=== PATIENT | male | born 1960 | race Caucasian/White ===

== ENCOUNTER 2018-05-31 10:59 | Inpatient (IN) | payer MEDICARE ==
[~2018-05-31] VITALS: Ht 180.3 cm; Wt 94.0 kg
--- NOTE | 2018-05-31 11:31 | RAD ---
Portable chest, 05/31/2018: HISTORY: Chest pain The heart size is normal. The lungs are clear. There is no evidence of pleural fluid. Mild spurring is present in the spine. IMPRESSION: No acute cardiopulmonary abnormality is detected. Electronically signed by: Demarco Corley MD (05/31/2018 11:28 AM) [facility]
--- NOTE | 2018-05-31 11:35 | EKG ---
[facility] [address] [place] [address] Test Date: 2018-05-31 Test Time: 11:06:29 Pat Name: OSCAR DALEY Department: Room: Gender: M Molder Closed Molds: : 1960 Requested By: ARIANNE COSTA Order Number: [id number] Reading MD: Walter Blount MD Measurements Intervals Anderson Rate: 79 P: 62 IL: 170 QRS: 44 QRSD: 94 T: 69 QT: 362 QTc: 416 Interpretive Statements SINUS RHYTHM Electronically Signed On 05-31-2018 12:37:57 CDT by Walter Blount MD
[2018-05-31 11:50] LABS: BASO # 0.1 x10^3/uL (0.0-0.2); BASO % 1 % (0-3); EOS # 0.2 x10^3/uL (0.0-0.7); EOS % 3 % (0-3); HEMATOCRIT 51.4 % (39.0-53.0); HEMOGLOBIN 17.7 g/dL (13.0-17.5); LYMPH % 25 % (24-48); MEAN CORPUSCULAR HEMOGLOBIN 31 pg (25-35); MEAN CORPUSCULAR HGB CONC 34 g/dL (31-37); MEAN CORPUSCULAR VOLUME 90 fL (79-100); MONO # 0.8 x10^3/uL (0.0-1.1); MONO % 10 % (0-9); NEUT # 4.9 x10^3uL (1.8-7.7); NEUT % 62 % (31-73); PLATELET COUNT 187 x10^3/uL (140-400); RED BLOOD COUNT 5.69 x10^6/uL (4.30-5.70); RED CELL DISTRIBUTION WIDTH 12.7 % (11.5-14.5)
[2018-05-31 11:59] LABS: CALCIUM 9.3 mg/dL (8.5-10.1); CREATININE 1.2 mg/dL (0.7-1.3); POTASSIUM 4.4 mmol/L (3.5-5.1)
[2018-05-31 12:02] LABS: PROTHROMBIN TIME PATIENT 11.9 SEC (11.7-14.0)
[2018-05-31 12:09] LABS: D-DIMER 0.52 ug/mlFEU (0.00-0.50)
--- NOTE | 2018-05-31 12:18 | PHYS DOC ---
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 The patient reports she has been having sternal chest pain that radiates across to the right side of his chest as well as the right arm and left arm into the left hand. He has been having symptoms over the last 3 weeks. Symptoms are sometimes worse with exertion and somewhat relieved by rest although he does have symptoms also at rest. He reports the symptoms feel exactly similar to when he previously had been discovered to have significant coronary artery disease in the left anterior descending artery. The patient underwent stent placement as outlined below. The exact dates of the stenting are unknown but the most recent was 2014. There were several stents placed to the LAD over a period of several years. He denies shortness of breath. He has no fever or cough. The patient is new to this area. He has had some problems establishing health insurance and has not been taking his blood pressure medications. He is not followed by cardiology locally. INFORMATION FROM STENT CARD: - Promos PREMIER 2.5 x 16 mm stent to LAD - Promos PREMIER 2.5 x 16 mm stent to MID LAD - Promos PREMIER 2.5 x 24 mm stent to LAD - Promos PREMIER MONORAIL 2.5 x 20 mm stent to ?? DATES PLACED ARE UNCLEAR BUT MOST RECENT WAS 2014. Review of Systems Review of Systems Constitutional: Denies fever HENT: Denies nasal congestion Respiratory: Denies cough or shortness of breath Cardiovascular: No additional information not addressed in HPI GI: Denies abdominal pain : Denies dysuria Musculoskeletal: Denies back pain Integument: Denies rash or skin lesions Neurologic: Denies headache Endocrine: Denies polyuria All other systems were reviewed and found to be within normal limits, except as documented in this note. Allergies Allergies Allergies Coded Allergies Type Severity Reaction Last Updated Verified Penicillins Allergy Unknown hives 05/31/18 Yes Physical Exam Physical Exam Constitutional: Well developed, well nourished, no acute distress HENT: Normocephalic, atraumatic, bilateral external ears normal, oropharynx moist Eyes: PERRLA, EOMI, conjunctiva normal Neck: Normal range of motion, no tenderness Cardiovascular:Heart rate regular rhythm, no murmur Lungs & Thorax: Bilateral breath sounds clear to auscultation Abdomen: Bowel sounds normal, soft, no tenderness Skin: Warm, dry Back: No tenderness Extremities: No tenderness Neurologic: Alert and oriented X 3 Psychologic: Affect normal Current Patient Data Vital Signs Vital Signs Date Time Temp Pulse Resp B/P (MAP) Pulse Ox O2 Delivery O2 Flow Rate FiO2 05/31/18 11:00 98.4 90 16 192/105 (134) 97 Room Air 98.4 Lab Values Laboratory Tests Test 05/31/18 11:45 White Blood Count 8.0 x10^3/uL (4.0-11.0) Red Blood Count 5.69 x10^6/uL (4.30-5.70) Hemoglobin 17.7 g/dL (13.0-17.5) H Hematocrit 51.4 % (39.0-53.0) Mean Corpuscular Volume 90 fL (79-100) Mean Corpuscular Hemoglobin 31 pg (25-35) Mean Corpuscular Hemoglobin Concent 34 g/dL (31-37) Red Cell Distribution Width 12.7 % (11.5-14.5) Platelet Count 187 x10^3/uL (140-400) Neutrophils (%) (Auto) 62 % (31-73) Lymphocytes (%) (Auto) 25 % (24-48) Monocytes (%) (Auto) 10 % (0-9) H Eosinophils (%) (Auto) 3 % (0-3) Basophils (%) (Auto) 1 % (0-3) Neutrophils # (Auto) 4.9 x10^3uL (1.8-7.7) Lymphocytes # (Auto) 2.0 x10^3/uL (1.0-4.8) Monocytes # (Auto) 0.8 x10^3/uL (0.0-1.1) Eosinophils # (Auto) 0.2 x10^3/uL (0.0-0.7) Basophils # (Auto) 0.1 x10^3/uL (0.0-0.2) Prothrombin Time 11.9 SEC (11.7-14.0) Prothrombin Time INR 0.9 (0.8-1.1) D-Dimer (Yen) 0.52 ug/mlFEU (0.00-0.50) H Sodium Level 138 mmol/L (136-145) Potassium Level 4.4 mmol/L (3.5-5.1) Chloride Level 102 mmol/L (98-107) Carbon Dioxide Level 28 mmol/L (21-32) Anion Gap 8 (6-14) Blood Urea Nitrogen 14 mg/dL (8-26) Creatinine 1.2 mg/dL (0.7-1.3) Estimated GFR (Cockcroft-Gault) 62.0 Glucose Level 122 mg/dL (70-99) H Calcium Level 9.3 mg/dL (8.5-10.1) Troponin I Quantitative < 0.017 ng/mL (0.000-0.055) BB-Wqt-G-Type Natriuretic Peptide 132 pg/mL (0-124) H Laboratory Tests 05/31/18 11:45 Laboratory Tests 05/31/18 11:45 EKG EKG No STEMI Interpretation Time: 11:10 Radiology/Procedures Radiology/Procedures CXR: no acute findings Course & Med Decision Making Course & Med Decision Making Pertinent Labs and Imaging studies reviewed. (See chart for details) 12:00: Patient is evaluated in the emergency department for chest pain in the setting of significant history of stenosis to the left anterior descending artery. Symptoms are identical to prior heart related pain according to the patient. His EKG in the emergency Department is nonacute. His troponin is not elevated. Given his risk factors, plan will be to admit the patient and request cardiology evaluation. The patient did take aspirin or to coming to the emergency department. He is not currently having chest pain during the ED course so no additional nitroglycerin or morphine is given. The patient is noted to be hypertensive with systolic blood pressures in the 170s. He normally takes Norvasc 10 mg daily and metoprolol 50 mg extended release daily but he has not been taking these medications. Patient is agreeable to the admission plan of care. Dragon Disclaimer Dragon Disclaimer This electronic medical record was generated, in whole or in part, using a voice recognition dictation system. Departure Departure Referrals: NO PCP (PCP) ARIANNE COSTA DO May 31, 2018 12:18
[2018-05-31] MEDS ORDERED: NITROGLYCERIN SUBLINGUAL 0.4 MG BOTTLE OF 25. SL PRN ×3 (12:30→20:45)
[2018-05-31] MEDS ORDERED: MORPHINE SULFATE 4 MG/ML VIAL. IV PRN (12:30)
[2018-05-31] MEDS ORDERED: ONDANSETRON PF 4 MG/2 ML VIAL. IV PRN (12:30)
[2018-05-31 14:15] VITALS: BP 187/115
--- NOTE | 2018-05-31 14:38 | PDOC2 ---
PIYUSH LINDSEY RIVETER 05/31/18 1438: CARDIAC CONSULT DATE OF CONSULT Date of Consult DATE: 05/31/18 TIME: 14:32 REASON FOR CONSULT Reason for Consult: Chest pain REFERRING PHYSICIAN Referring Physician: Renzo SOURCE Source: Chart review, Patient HISTORY OF PRESENT ILLNESS HISTORY OF PRESENT ILLNESS This is a pleasant 58 yo male admitted for complains of chest pain. Reports that he has been having chest pain in the last 2 weeks mainly sharp in consistency and radiating to both of his arms. Denies any palpitations, nausea , dizziness. Positive for EGAN sometimes attributing it to smoking with at times coughing spells. Denies any leg swelling, PND or orthopnea. No heartburn or frequent indigestion. He has been taking intermittent NTG and took about 3- 4 yesterday and actually helped and today he took 1. Denies any falls or any recent injury but he does explained that he has a bad back which put him in disability. He is significant for CAD with cardiac arrest in 2003 and again [place] in 2014 at [facility] in [place]. He has now moved in [place] with her daughter. He has not seen his behavioral psychologist for a while citing that he could not afford going to the clinic after 2014. To date he takes ASA, flexeril for his back but he does not take any BP meds, or statins. Denies any ibuprofen or aleve. No past hx of arrhythmias or VTE. PAST MEDICAL HISTORY Cardiovascular: CAD, HTN, Hyperlipidemia GI: No pertinent hx Heme/Onc: No pertinent hx Hepatobiliary: No pertinent hx Psych: No pertinent hx Musculoskeletal: low back pain, Osteoarthritis Rheumatologic: No pertinent hx Infectious disease: No pertinent hx ENT: No pertinent hx Renal/: No pertinent hx Endocrine: Diabetes (pre) Dermatology: No pertinent hx PAST SURGICAL HISTORY Past Surgical History: Other (PCI/stent in 2003 and 2014; right middle finger surgery) FAMILY HISTORY Family History: Coronary Artery Disease (mother and father) SOCIAL HISTORY Smoke: <1 pack per day ALCOHOL: none Drugs: Marijuana Lives: with Family ALLERGIES ALLERGIES: Coded Allergies: Penicillins (Verified Allergy, Unknown, hives, 05/31/18) ROS Review of System 14 point ROS evaluated with pertinent positives noted per HPI PHYSICAL EXAM General: Alert, Oriented X3, Cooperative, No acute distress HEENT: Atraumatic, Mucous membr. moist/pink Lungs: Other (faint upper wheeze) Heart: Regular rate (SR), Normal S1, Normal S2, Other (2/6 systolic murmur to LLS border) Abdomen: Soft, No tenderness Extremities: No cyanosis, No edema Skin: No breakdown, No significant lesion Neuro: Normal speech, Sensation intact Psych/Mental Status: Mental status NL, Mood NL MUSCULOSKELETAL: Osteoarthritic changes both hands VITALS VITALS Vital Signs Date Time Temp Pulse Resp B/P (MAP) Pulse Ox O2 Delivery O2 Flow Rate FiO2 05/31/18 12:06 84 16 184/104 (130) 97 Room Air 05/31/18 11:00 98.4 98.4 LABS Lab: Laboratory Tests Test 05/31/18 11:45 White Blood Count 8.0 x10^3/uL (4.0-11.0) Red Blood Count 5.69 x10^6/uL (4.30-5.70) Hemoglobin 17.7 g/dL (13.0-17.5) Hematocrit 51.4 % (39.0-53.0) Mean Corpuscular Volume 90 fL (79-100) Mean Corpuscular Hemoglobin 31 pg (25-35) Mean Corpuscular Hemoglobin Concent 34 g/dL (31-37) Red Cell Distribution Width 12.7 % (11.5-14.5) Platelet Count 187 x10^3/uL (140-400) Neutrophils (%) (Auto) 62 % (31-73) Lymphocytes (%) (Auto) 25 % (24-48) Monocytes (%) (Auto) 10 % (0-9) Eosinophils (%) (Auto) 3 % (0-3) Basophils (%) (Auto) 1 % (0-3) Neutrophils # (Auto) 4.9 x10^3uL (1.8-7.7) Lymphocytes # (Auto) 2.0 x10^3/uL (1.0-4.8) Monocytes # (Auto) 0.8 x10^3/uL (0.0-1.1) Eosinophils # (Auto) 0.2 x10^3/uL (0.0-0.7) Basophils # (Auto) 0.1 x10^3/uL (0.0-0.2) Prothrombin Time 11.9 SEC (11.7-14.0) Prothromb Time International Ratio 0.9 (0.8-1.1) D-Dimer (Yen) 0.52 ug/mlFEU (0.00-0.50) Sodium Level 138 mmol/L (136-145) Potassium Level 4.4 mmol/L (3.5-5.1) Chloride Level 102 mmol/L (98-107) Carbon Dioxide Level 28 mmol/L (21-32) Anion Gap 8 (6-14) Blood Urea Nitrogen 14 mg/dL (8-26) Creatinine 1.2 mg/dL (0.7-1.3) Estimated GFR (Cockcroft-Gault) 62.0 Glucose Level 122 mg/dL (70-99) Calcium Level 9.3 mg/dL (8.5-10.1) Troponin I Quantitative < 0.017 ng/mL (0.000-0.055) QN-Jos-Z-Type Natriuretic Peptide 132 pg/mL (0-124) HEART CATH HEART CATH 2014 INFORMATION FROM STENT CARD: - Promos PREMIER 2.5 x 16 mm stent to LAD - Promos PREMIER 2.5 x 16 mm stent to MID LAD - Promos PREMIER 2.5 x 24 mm stent to LAD - Promos PREMIER 2.5 x 20 mm stent to ?? ASSESSMENT/PLAN ASSESSMENT/PLAN 1. Chest pain: likely induced by uncontrolled HTN, initial trop nml. EKG SR no acute changes. 2. Accelerated HTN: mainly due to noncompliance. 3. HLP 4. Metabolic syndrome 5. Tobaccoism with likely COPD 6. CAD: cardiac arrest in 2003 with stent placement and 2015 stent placement 7. Noncompliance: has not utilized cardiac meds but has been using NTG due to financial constraints. 8. Marijuana use Recommendations 1. Labetolol IV. Start on coreg, lisinopril, statin and ASA 2. Obtain cardiac records. 3. Ischemic workup tomorrow 4. SS referral. Smoking cessation. Discussed compliance. 5. Lipids, TSH, UDS, trend troponin. 6. TTE YASMEEN SHIELDS MD 05/31/186: CARDIAC CONSULT ASSESSMENT/PLAN ASSESSMENT/PLAN Pt. seen and examined. Agree with above [employer] note. I had a long discussion with the patient about aggressive versus conservative mgmt, given his significant cardiac history, stress testing will likely be abnormal. He wishes to pursue conservative measures, which is reasonable given that his enzymes are normal. Supportive care. Plan for MPI in a.m and further eval based on results. PIYUSH LINDSEY APRN May 31, 2018 14:38 YASMEEN SHIELDS MD May 31, 2018 21:36
[2018-05-31] MEDS ORDERED: LABETALOL 20 MG/4 ML DISP.SYRIN. IVP PRN (14:45)
[2018-05-31] MEDS ORDERED: LABETALOL 20 MG/4 ML DISP.SYRIN. IVP ONE (15:15)
[2018-05-31] MEDS: LISINOPRIL 20 MG TABLET PO SCH (15:21)
[2018-05-31] MEDS ORDERED: ASPIRIN ENTERIC COATED 325 MG TABLET.DR. PO ONE (15:30)
[2018-05-31] MEDS ORDERED: FAMOTIDINE 20 MG TABLET. PO ONE (15:30)
[2018-05-31 15:46] LABS: CHOLESTEROL/HDL RATIO 5.8
[2018-05-31] MEDS ORDERED: NITR0.4T22 SL (15:47)
[2018-05-31] MEDS ORDERED: CYCL10TA2 PO (15:47)
[2018-05-31] MEDS ORDERED: ASPI325T8 PO (15:47)
[2018-05-31 15:50] VITALS: BP 157/92
[2018-05-31 17:16] VITALS: BP 149/98
[2018-05-31] MEDS: CARVEDILOL 6.25 MG TABLET. PO SCH (17:38)
[2018-05-31 18:26] LABS: BARBITURATES NEG (NEG); BENZODIAZEPINES NEG (NEG); CANNABINOIDS POS (NEG); COCAINE NEG (NEG); METHADONE NEG (NEG); OPIATES NEG (NEG); PHENCYCLIDINE NEG (NEG)
[2018-05-31 18:27] LABS: AMPHETAMINE/METHAMPHETAMINE NEG (NEG)
[2018-05-31 19:00] VITALS: BP 136/88
--- NOTE | 2018-05-31 20:19 | PDOC1 ---
History and Physical Date of Admission Date of Admission DATE: 05/31/18 TIME: 20:19 Identification/Chief Complaint Chief Complaint cc seen in ER has been having symptoms over the last 3 wee, worse with exertion and somewhat relieved by rest although he does have symptoms also at rest. reports the symptoms feel exactly similar to when he previously had been discovered to have significant coronary artery disease . The patient underwent stent placement as outlined . The exact dates of the stenting are unknown but the most recent was 2014. There were several stents placed to the LAD over a period of several years. 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 Past Surgical History: Other Additional Past Surgical Histo: cardiac stents; r hand Alcohol Use: None Drug Use: Marijuana FAMILY HX CAD Cardiovascular: CAD, HTN, Hyperlipidemia GI: No pertinent hx Heme/Onc: No pertinent hx Hepatobiliary: No pertinent hx Psych: No pertinent hx Musculoskeletal: low back pain, Osteoarthritis Rheumatologic: No pertinent hx Infectious disease: No pertinent hx ENT: No pertinent hx Renal/: No pertinent hx Endocrine: Diabetes (pre) Dermatology: No pertinent hx Past Surgical History Past Surgical History: Other (PCI/stent in 2003 and 2014; right middle finger surgery) Family History Family History: Coronary Artery Disease (mother and father) Family History: Grandparents Social History Smoke: <1 pack per day ALCOHOL: none Drugs: Marijuana Current Problem List Problem List Problems Medical Problems: (1) Chest pain Status: Acute (2) Coronary artery disease Status: Acute Current Medications Current Medications Current Medications Ondansetron HCl (Zofran) 4 mg PRN Q8HRS PRN IV NAUSEA/VOMITING; Start 05/31/18 at 12:30; Stop 06/01/18 at 12:29 Morphine Sulfate (Morphine Sulfate) 4 mg PRN Q2HR PRN IV PAIN; Start 05/31/18 at 12:30; Stop 06/01/18 at 12:29 Nitroglycerin (Nitrostat) 0.4 mg PRN Q5MIN PRN SL CHEST PAIN; Start 05/31/18 at 12:30; Stop 06/01/18 at 12:29 Aspirin (Ecotrin) 325 mg 1X ONCE PO Last administered on 05/31/18at 15:20; Start 05/31/18 at 15:30; Stop 05/31/18 at 15:31; Status DC Aspirin (Ecotrin) 81 mg DAILYWBKFT PO ; Start 06/01/18 at 08:00 Famotidine (Pepcid) 20 mg 1X ONCE PO Last administered on 05/31/18at 15:20; Start 05/31/18 at 15:30; Stop 05/31/18 at 15:31; Status DC Famotidine (Pepcid) 20 mg QHS PO Last administered on 05/31/18at 20:11; Start 05/31/18 at 21:00 Labetalol HCl (Normodyne Iv Push) 20 mg PRN Q2HR PRN IVP HYPERTENSION, SEE COMMENTS; Start 05/31/18 at 14:45 Labetalol HCl (Normodyne Iv Push) 20 mg 1X ONCE IVP Last administered on at 15:24; Start 05/31/18 at 15:15; Stop 05/31/18 at 15:16; Status DC Lisinopril (Prinivil) 20 mg DAILY PO Last administered on 05/31/18at 15:21; Start 05/31/18 at 15:30 Carvedilol (Coreg) 6.25 mg BIDWMEALS PO Last administered on 05/31/18at 17:38; Start 05/31/18 at 17:00 Atorvastatin Calcium (Lipitor) 20 mg QHS PO ; Start 05/31/18 at 21:00; Stop at 21:00; Status DC Atorvastatin Calcium (Lipitor) 40 mg QHS PO Last administered on 05/31/18at 20:10 ; Start 05/31/18 at 21:00 Active Scripts Active Reported Aspirin 325 Mg Tablet 1 Tab PO DAILY Cyclobenzaprine Hcl 10 Mg Tablet 1 Tab PO TID PRN NITROGLYCERIN SubLingual (Nitroglycerin) 0.4 Mg Tab.subl 0.4 Mg SL PRN Q5MIN PRN Allergies Allergies: Coded Allergies: Penicillins (Verified Allergy, Unknown, hives, 05/31/18) ROS Review of System Review of Systems Review of Systems Constitutional: Denies fever HENT: Denies nasal congestion Respiratory: Denies cough or shortness of breath Cardiovascular: No additional information not addressed in HPI GI: Denies abdominal pain : Denies dysuria Musculoskeletal: Denies back pain Integument: Denies rash or skin lesions Neurologic: Denies headache Endocrine: Denies polyuria 14 PT systems were reviewed and found to be within normal limits, except as documented . PSYCHOLOGICAL ROS: No: Anxiety, Behavioral Disorder, Concentration difficultie , Decreased libido, Depression, Disorientation, Hallucinations, Hostility, Irritablity, Memory difficulties, Mood Swings, Obsessive thoughts, Physical abuse, Sexual abuse, Sleep disturbances, Suicidal ideation, Other Cardiovascular: yes Chest Pain Musculoskeletal: No Gait Disturbance, No Joint Pain, No Joint Stiffness, No Joint Swelling, No Muscle Pain, No Muscular Weakness, No Pain In:, No Swelling In:, No Other Neurological: No Behavorial Changes, No Bowel/Bladder ControlChng, No Confusion , No Dizziness, No Gait Disturbance, No Headaches, No Impaired Coord/balance, No Memory Loss, No Numbness/Tingling, No Seizures, No Speech Problems, No Tremors, No Visual Changes, No Weakness, No Other Physical Exam Physical Exam Physical Exam Physical Exam Constitutional: Well developed, well nourished, MILD acute distress HENT: Normocephalic, atraumatic, bilateral external ears normal, oropharynx moist Eyes: PERRLA, EOMI, conjunctiva normal Neck: Normal range of motion, no tenderness Cardiovascular:Heart rate regular rhythm, no murmur Lungs & Thorax: Bilateral breath sounds clear to auscultation Abdomen: Bowel sounds normal, soft, no tenderness Skin: Warm, dry Back: No tenderness Extremities: No tenderness Neurologic: Alert and oriented X 3 Psychologic: Affect normal General: Alert, Oriented X3, Cooperative, mild distress HEENT: Atraumatic, PERRLA Lungs: Normal air movement Heart: S1S2, no gallops Cardiovascular: S1 Rectal Exam: not examined PELVIC: Examination not indicated Extremities: No cyanosis Skin: No rashes Neuro: Normal speech, Cranial nerves 3-12 NL Psych/Mental Status: Mental status NL, Mood NL Vitals Vitals Vital Signs Date Time Temp Pulse Resp B/P (MAP) Pulse Ox O2 Delivery O2 Flow Rate FiO2 05/31/18 17:38 69 149/98 05/31/18 14:15 97.9 20 99 97.9 05/31/18 14:15 Room Air Labs Labs Laboratory Tests Test 05/31/18 11:45 05/31/18 15:17 05/31/18 17:35 05/31/18 18:30 White Blood Count 8.0 x10^3/uL (4.0-11.0) Red Blood Count 5.69 x10^6/uL (4.30-5.70) Hemoglobin 17.7 g/dL (13.0-17.5) Hematocrit 51.4 % (39.0-53.0) Mean Corpuscular Volume 90 fL (79-100) Mean Corpuscular Hemoglobin 31 pg (25-35) Mean Corpuscular Hemoglobin Concent 34 g/dL (31-37) Red Cell Distribution Width 12.7 % (11.5-14.5) Platelet Count 187 x10^3/uL (140-400) Neutrophils (%) (Auto) 62 % (31-73) Lymphocytes (%) (Auto) 25 % (24-48) Monocytes (%) (Auto) 10 % (0-9) Eosinophils (%) (Auto) 3 % (0-3) Basophils (%) (Auto) 1 % (0-3) Neutrophils # (Auto) 4.9 x10^3uL (1.8-7.7) Lymphocytes # (Auto) 2.0 x10^3/uL (1.0-4.8) Monocytes # (Auto) 0.8 x10^3/uL (0.0-1.1) Eosinophils # (Auto) 0.2 x10^3/uL (0.0-0.7) Basophils # (Auto) 0.1 x10^3/uL (0.0-0.2) Prothrombin Time 11.9 SEC (11.7-14.0) Prothromb Time International Ratio 0.9 (0.8-1.1) D-Dimer (Yen) 0.52 ug/mlFEU (0.00-0.50) Sodium Level 138 mmol/L (136-145) Potassium Level 4.4 mmol/L (3.5-5.1) Chloride Level 102 mmol/L (98-107) Carbon Dioxide Level 28 mmol/L (21-32) Anion Gap 8 (6-14) Blood Urea Nitrogen 14 mg/dL (8-26) Creatinine 1.2 mg/dL (0.7-1.3) Estimated GFR (Cockcroft-Gault) 62.0 Glucose Level 122 mg/dL (70-99) Calcium Level 9.3 mg/dL (8.5-10.1) Troponin I Quantitative < 0.017 ng/mL (0.000-0.055) < 0.017 ng/mL (0.000-0.055) < 0.017 ng/mL (0.000-0.055) RO-Pzb-H-Type Natriuretic Peptide 132 pg/mL (0-124) Triglycerides Level 165 mg/dL (0-150) Cholesterol Level 213 mg/dL (0-200) LDL Cholesterol, Calculated 143 mg/dL (0-100) VLDL Cholesterol, Calculated 33 mg/dL (0-40) Non-HDL Cholesterol Calculated 176 mg/dL (0-129) HDL Cholesterol 37 mg/dL (40-60) Cholesterol/HDL Ratio 5.8 Thyroid Stimulating Hormone (TSH) 2.670 uIU/mL (0.358-3.74) Urine Opiates Screen Neg (NEG) Urine Methadone Screen Neg (NEG) Urine Barbiturates Neg (NEG) Urine Phencyclidine Screen Neg (NEG) Urine Amphetamine/Methamphetamine Neg (NEG) Urine Benzodiazepines Screen Neg (NEG) Urine Cocaine Screen Neg (NEG) Urine Cannabinoids Screen Pos (NEG) Urine Ethyl Alcohol Neg (NEG) Laboratory Tests Test 05/31/18 11:45 05/31/18 15:17 05/31/18 17:35 05/31/18 18:30 White Blood Count 8.0 x10^3/uL (4.0-11.0) Red Blood Count 5.69 x10^6/uL (4.30-5.70) Hemoglobin 17.7 g/dL (13.0-17.5) Hematocrit 51.4 % (39.0-53.0) Mean Corpuscular Volume 90 fL (79-100) Mean Corpuscular Hemoglobin 31 pg (25-35) Mean Corpuscular Hemoglobin Concent 34 g/dL (31-37) Red Cell Distribution Width 12.7 % (11.5-14.5) Platelet Count 187 x10^3/uL (140-400) Neutrophils (%) (Auto) 62 % (31-73) Lymphocytes (%) (Auto) 25 % (24-48) Monocytes (%) (Auto) 10 % (0-9) Eosinophils (%) (Auto) 3 % (0-3) Basophils (%) (Auto) 1 % (0-3) Neutrophils # (Auto) 4.9 x10^3uL (1.8-7.7) Lymphocytes # (Auto) 2.0 x10^3/uL (1.0-4.8) Monocytes # (Auto) 0.8 x10^3/uL (0.0-1.1) Eosinophils # (Auto) 0.2 x10^3/uL (0.0-0.7) Basophils # (Auto) 0.1 x10^3/uL (0.0-0.2) Prothrombin Time 11.9 SEC (11.7-14.0) Prothromb Time International Ratio 0.9 (0.8-1.1) D-Dimer (Yen) 0.52 ug/mlFEU (0.00-0.50) Sodium Level 138 mmol/L (136-145) Potassium Level 4.4 mmol/L (3.5-5.1) Chloride Level 102 mmol/L (98-107) Carbon Dioxide Level 28 mmol/L (21-32) Anion Gap 8 (6-14) Blood Urea Nitrogen 14 mg/dL (8-26) Creatinine 1.2 mg/dL (0.7-1.3) Estimated GFR (Cockcroft-Gault) 62.0 Glucose Level 122 mg/dL (70-99) Calcium Level 9.3 mg/dL (8.5-10.1) Troponin I Quantitative < 0.017 ng/mL (0.000-0.055) < 0.017 ng/mL (0.000-0.055) < 0.017 ng/mL (0.000-0.055) PZ-Poy-W-Type Natriuretic Peptide 132 pg/mL (0-124) Triglycerides Level 165 mg/dL (0-150) Cholesterol Level 213 mg/dL (0-200) LDL Cholesterol, Calculated 143 mg/dL (0-100) VLDL Cholesterol, Calculated 33 mg/dL (0-40) Non-HDL Cholesterol Calculated 176 mg/dL (0-129) HDL Cholesterol 37 mg/dL (40-60) Cholesterol/HDL Ratio 5.8 Thyroid Stimulating Hormone (TSH) 2.670 uIU/mL (0.358-3.74) Urine Opiates Screen Neg (NEG) Urine Methadone Screen Neg (NEG) Urine Barbiturates Neg (NEG) Urine Phencyclidine Screen Neg (NEG) Urine Amphetamine/Methamphetamine Neg (NEG) Urine Benzodiazepines Screen Neg (NEG) Urine Cocaine Screen Neg (NEG) Urine Cannabinoids Screen Pos (NEG) Urine Ethyl Alcohol Neg (NEG) VTE Prophylaxis Ordered VTE Prophylaxis Devices: Yes VTE Pharmacological Prophylaxi: Yes Assessment/Plan Assessment/Plan IMPRESSION 1. Unstable angina 2. continued tobacco abuse 3. THC abuse 4. CAD 5. hypertensive urgency Labetolol IV. in er 1. coreg, lisinopril, statin and ASA 2. Obtain records. 3. mpi 4. SS referral. Smoking cessation education provided 5. Lipids, TSH, UDS, troponin series. 6. echo 7. sq lovenox dvt prophylaxis 8. gi prophylaxis LILIANE LARSON MD May 31, 2018 20:19
[2018-05-31] MEDS ORDERED: CYCLOBENZAPRINE 10 MG TABLET. PO PRN (20:45)
[2018-05-31] MEDS ORDERED: ENOXAPARIN 40 MG/0.4 ML SYRINGE. SQ SCH (21:00)
[2018-05-31] MEDS ORDERED: FAMOTIDINE 20 MG TABLET. PO SCH (21:00)
[2018-05-31] MEDS ORDERED: ATORVASTATIN CALCIUM 40 MG TABLET. PO SCH (21:00)
[2018-05-31] MEDS ORDERED: ATORVASTATIN CALCIUM 20 MG TABLET PO SCH (21:00)
[2018-05-31 23:00] VITALS: BP 136/88
[2018-06-01 03:00] VITALS: BP 123/73
[2018-06-01 07:00] VITALS: BP 121/80
[2018-06-01] MEDS: CARVEDILOL 6.25 MG TABLET. PO SCH ×2 (08:00→17:20)
[2018-06-01] MEDS ORDERED: ASPIRIN ENTERIC COATED 81 MG TABLET.DR. PO SCH (08:00)
[2018-06-01 08:43] LABS: BASO # 0.1 x10^3/uL (0.0-0.2); BASO % 1 % (0-3); EOS # 0.3 x10^3/uL (0.0-0.7); EOS % 4 % (0-3); HEMOGLOBIN 16.8 g/dL (13.0-17.5); LYMPH # 1.9 x10^3/uL (1.0-4.8); LYMPH % 24 % (24-48); MEAN CORPUSCULAR HEMOGLOBIN 32 pg (25-35); MEAN CORPUSCULAR HGB CONC 35 g/dL (31-37); MEAN CORPUSCULAR VOLUME 90 fL (79-100); MONO # 0.7 x10^3/uL (0.0-1.1); MONO % 9 % (0-9); NEUT # 4.7 x10^3uL (1.8-7.7); NEUT % 61 % (31-73); PLATELET COUNT 172 x10^3/uL (140-400); RED BLOOD COUNT 5.32 x10^6/uL (4.30-5.70); RED CELL DISTRIBUTION WIDTH 12.8 % (11.5-14.5); WHITE BLOOD COUNT 7.7 x10^3/uL (4.0-11.0)
[2018-06-01] MEDS ORDERED: ASPIRIN 325 MG TABLET PO SCH (09:00)
[2018-06-01] MEDS: LISINOPRIL 20 MG TABLET PO SCH (09:00)
[2018-06-01 09:02] LABS: CALCIUM 8.7 mg/dL (8.5-10.1); CREATININE 1.2 mg/dL (0.7-1.3); POTASSIUM 4.3 mmol/L (3.5-5.1)
[2018-06-01] MEDS ORDERED: REGADENOSON 0.4 MG/5 ML DISP.SYRIN. IV ONE (09:30)
[2018-06-01 12:16] VITALS: BP 120/93
--- NOTE | 2018-06-01 12:53 | PDOC ---
PROGRESS NOTES Chief Complaint Chief Complaint Chest pain, 2/2 HTN urgency vs unstable angina HTN urgency HLP Metabolic syndrome Tobaccoism with likely COPD h/o CAD: cardiac arrest in 2003 with stent placement and 2015 stent placement Noncompliance: has not utilized cardiac meds but has been using NTG due to financial constraints. Marijuana use plan: fu with card, on asa, lipitor, coreg , lisinopril MPI today sw for no insurance nitro prn echo pending dvt ppx History of Present Illness History of Present Illness ROS: no fever, chills, sob or chest pain no chest pain for now Vitals Vitals Vital Signs Date Time Temp Pulse Resp B/P (MAP) Pulse Ox O2 Delivery O2 Flow Rate FiO2 06/01/18 12:16 120/93 (102) 06/01/18 08:00 Room Air 06/01/18 07:00 97.7 70 20 96 97.7 Physical Exam General: Alert, Oriented X3, Cooperative, mild distress Heart: Regular rate (SR), Normal S1, Normal S2, Other (2/6 systolic murmur to LLS border) Lungs: Clear Abdomen: Normal bowel sounds, Soft, No tenderness Extremities: No cyanosis Skin: No rashes Labs LABS Laboratory Tests Test 05/31/18 15:17 05/31/18 17:35 05/31/18 18:30 06/01/18 08:25 Troponin I Quantitative < 0.017 ng/mL (0.000-0.055) < 0.017 ng/mL (0.000-0.055) Urine Opiates Screen Neg (NEG) Urine Methadone Screen Neg (NEG) Urine Barbiturates Neg (NEG) Urine Phencyclidine Screen Neg (NEG) Urine Amphetamine/Methamphetamine Neg (NEG) Urine Benzodiazepines Screen Neg (NEG) Urine Cocaine Screen Neg (NEG) Urine Cannabinoids Screen Pos (NEG) Urine Ethyl Alcohol Neg (NEG) White Blood Count 7.7 x10^3/uL (4.0-11.0) Red Blood Count 5.32 x10^6/uL (4.30-5.70) Hemoglobin 16.8 g/dL (13.0-17.5) Hematocrit 48.0 % (39.0-53.0) Mean Corpuscular Volume 90 fL (79-100) Mean Corpuscular Hemoglobin 32 pg (25-35) Mean Corpuscular Hemoglobin Concent 35 g/dL (31-37) Red Cell Distribution Width 12.8 % (11.5-14.5) Platelet Count 172 x10^3/uL (140-400) Neutrophils (%) (Auto) 61 % (31-73) Lymphocytes (%) (Auto) 24 % (24-48) Monocytes (%) (Auto) 9 % (0-9) Eosinophils (%) (Auto) 4 % (0-3) Basophils (%) (Auto) 1 % (0-3) Neutrophils # (Auto) 4.7 x10^3uL (1.8-7.7) Lymphocytes # (Auto) 1.9 x10^3/uL (1.0-4.8) Monocytes # (Auto) 0.7 x10^3/uL (0.0-1.1) Eosinophils # (Auto) 0.3 x10^3/uL (0.0-0.7) Basophils # (Auto) 0.1 x10^3/uL (0.0-0.2) Sodium Level 136 mmol/L (136-145) Potassium Level 4.3 mmol/L (3.5-5.1) Chloride Level 104 mmol/L (98-107) Carbon Dioxide Level 26 mmol/L (21-32) Anion Gap 6 (6-14) Blood Urea Nitrogen 15 mg/dL (8-26) Creatinine 1.2 mg/dL (0.7-1.3) Estimated GFR (Cockcroft-Gault) 62.0 Glucose Level 116 mg/dL (70-99) Calcium Level 8.7 mg/dL (8.5-10.1) Assessment and Plan Assessmemt and Plan Problems Medical Problems: (1) Chest pain Status: Acute (2) Coronary artery disease Status: Acute Comment Review of Relevant I have reviewed the following items isaac (where applicable) has been applied. Labs Laboratory Tests Test 05/31/18 11:45 05/31/18 15:17 05/31/18 17:35 05/31/18 18:30 White Blood Count 8.0 x10^3/uL (4.0-11.0) Red Blood Count 5.69 x10^6/uL (4.30-5.70) Hemoglobin 17.7 g/dL (13.0-17.5) Hematocrit 51.4 % (39.0-53.0) Mean Corpuscular Volume 90 fL (79-100) Mean Corpuscular Hemoglobin 31 pg (25-35) Mean Corpuscular Hemoglobin Concent 34 g/dL (31-37) Red Cell Distribution Width 12.7 % (11.5-14.5) Platelet Count 187 x10^3/uL (140-400) Neutrophils (%) (Auto) 62 % (31-73) Lymphocytes (%) (Auto) 25 % (24-48) Monocytes (%) (Auto) 10 % (0-9) Eosinophils (%) (Auto) 3 % (0-3) Basophils (%) (Auto) 1 % (0-3) Neutrophils # (Auto) 4.9 x10^3uL (1.8-7.7) Lymphocytes # (Auto) 2.0 x10^3/uL (1.0-4.8) Monocytes # (Auto) 0.8 x10^3/uL (0.0-1.1) Eosinophils # (Auto) 0.2 x10^3/uL (0.0-0.7) Basophils # (Auto) 0.1 x10^3/uL (0.0-0.2) Prothrombin Time 11.9 SEC (11.7-14.0) Prothromb Time International Ratio 0.9 (0.8-1.1) D-Dimer (Yen) 0.52 ug/mlFEU (0.00-0.50) Sodium Level 138 mmol/L (136-145) Potassium Level 4.4 mmol/L (3.5-5.1) Chloride Level 102 mmol/L (98-107) Carbon Dioxide Level 28 mmol/L (21-32) Anion Gap 8 (6-14) Blood Urea Nitrogen 14 mg/dL (8-26) Creatinine 1.2 mg/dL (0.7-1.3) Estimated GFR (Cockcroft-Gault) 62.0 Glucose Level 122 mg/dL (70-99) Calcium Level 9.3 mg/dL (8.5-10.1) Troponin I Quantitative < 0.017 ng/mL (0.000-0.055) < 0.017 ng/mL (0.000-0.055) < 0.017 ng/mL (0.000-0.055) RM-Kbl-I-Type Natriuretic Peptide 132 pg/mL (0-124) Triglycerides Level 165 mg/dL (0-150) Cholesterol Level 213 mg/dL (0-200) LDL Cholesterol, Calculated 143 mg/dL (0-100) VLDL Cholesterol, Calculated 33 mg/dL (0-40) Non-HDL Cholesterol Calculated 176 mg/dL (0-129) HDL Cholesterol 37 mg/dL (40-60) Cholesterol/HDL Ratio 5.8 Thyroid Stimulating Hormone (TSH) 2.670 uIU/mL (0.358-3.74) Urine Opiates Screen Neg (NEG) Urine Methadone Screen Neg (NEG) Urine Barbiturates Neg (NEG) Urine Phencyclidine Screen Neg (NEG) Urine Amphetamine/Methamphetamine Neg (NEG) Urine Benzodiazepines Screen Neg (NEG) Urine Cocaine Screen Neg (NEG) Urine Cannabinoids Screen Pos (NEG) Urine Ethyl Alcohol Neg (NEG) Test 06/01/18 08:25 White Blood Count 7.7 x10^3/uL (4.0-11.0) Red Blood Count 5.32 x10^6/uL (4.30-5.70) Hemoglobin 16.8 g/dL (13.0-17.5) Hematocrit 48.0 % (39.0-53.0) Mean Corpuscular Volume 90 fL (79-100) Mean Corpuscular Hemoglobin 32 pg (25-35) Mean Corpuscular Hemoglobin Concent 35 g/dL (31-37) Red Cell Distribution Width 12.8 % (11.5-14.5) Platelet Count 172 x10^3/uL (140-400) Neutrophils (%) (Auto) 61 % (31-73) Lymphocytes (%) (Auto) 24 % (24-48) Monocytes (%) (Auto) 9 % (0-9) Eosinophils (%) (Auto) 4 % (0-3) Basophils (%) (Auto) 1 % (0-3) Neutrophils # (Auto) 4.7 x10^3uL (1.8-7.7) Lymphocytes # (Auto) 1.9 x10^3/uL (1.0-4.8) Monocytes # (Auto) 0.7 x10^3/uL (0.0-1.1) Eosinophils # (Auto) 0.3 x10^3/uL (0.0-0.7) Basophils # (Auto) 0.1 x10^3/uL (0.0-0.2) Sodium Level 136 mmol/L (136-145) Potassium Level 4.3 mmol/L (3.5-5.1) Chloride Level 104 mmol/L (98-107) Carbon Dioxide Level 26 mmol/L (21-32) Anion Gap 6 (6-14) Blood Urea Nitrogen 15 mg/dL (8-26) Creatinine 1.2 mg/dL (0.7-1.3) Estimated GFR (Cockcroft-Gault) 62.0 Glucose Level 116 mg/dL (70-99) Calcium Level 8.7 mg/dL (8.5-10.1) Laboratory Tests Test 05/31/18 15:17 05/31/18 17:35 05/31/18 18:30 06/01/18 08:25 Troponin I Quantitative < 0.017 ng/mL (0.000-0.055) < 0.017 ng/mL (0.000-0.055) Urine Opiates Screen Neg (NEG) Urine Methadone Screen Neg (NEG) Urine Barbiturates Neg (NEG) Urine Phencyclidine Screen Neg (NEG) Urine Amphetamine/Methamphetamine Neg (NEG) Urine Benzodiazepines Screen Neg (NEG) Urine Cocaine Screen Neg (NEG) Urine Cannabinoids Screen Pos (NEG) Urine Ethyl Alcohol Neg (NEG) White Blood Count 7.7 x10^3/uL (4.0-11.0) Red Blood Count 5.32 x10^6/uL (4.30-5.70) Hemoglobin 16.8 g/dL (13.0-17.5) Hematocrit 48.0 % (39.0-53.0) Mean Corpuscular Volume 90 fL (79-100) Mean Corpuscular Hemoglobin 32 pg (25-35) Mean Corpuscular Hemoglobin Concent 35 g/dL (31-37) Red Cell Distribution Width 12.8 % (11.5-14.5) Platelet Count 172 x10^3/uL (140-400) Neutrophils (%) (Auto) 61 % (31-73) Lymphocytes (%) (Auto) 24 % (24-48) Monocytes (%) (Auto) 9 % (0-9) Eosinophils (%) (Auto) 4 % (0-3) Basophils (%) (Auto) 1 % (0-3) Neutrophils # (Auto) 4.7 x10^3uL (1.8-7.7) Lymphocytes # (Auto) 1.9 x10^3/uL (1.0-4.8) Monocytes # (Auto) 0.7 x10^3/uL (0.0-1.1) Eosinophils # (Auto) 0.3 x10^3/uL (0.0-0.7) Basophils # (Auto) 0.1 x10^3/uL (0.0-0.2) Sodium Level 136 mmol/L (136-145) Potassium Level 4.3 mmol/L (3.5-5.1) Chloride Level 104 mmol/L (98-107) Carbon Dioxide Level 26 mmol/L (21-32) Anion Gap 6 (6-14) Blood Urea Nitrogen 15 mg/dL (8-26) Creatinine 1.2 mg/dL (0.7-1.3) Estimated GFR (Cockcroft-Gault) 62.0 Glucose Level 116 mg/dL (70-99) Calcium Level 8.7 mg/dL (8.5-10.1) Medications Current Medications Ondansetron HCl (Zofran) 4 mg PRN Q8HRS PRN IV NAUSEA/VOMITING; Start 05/31/18 at 12:30; Stop 06/01/18 at 12:29; Status DC Morphine Sulfate (Morphine Sulfate) 4 mg PRN Q2HR PRN IV PAIN; Start 05/31/18 at 12:30; Stop 06/01/18 at 12:29; Status DC Nitroglycerin (Nitrostat) 0.4 mg PRN Q5MIN PRN SL CHEST PAIN; Start 05/31/18 at 12:30; Stop 05/31/18 at 20:42; Status DC Aspirin (Ecotrin) 325 mg 1X ONCE PO Last administered on 05/31/18at 15:20; Start 05/31/18 at 15:30; Stop 05/31/18 at 15:31; Status DC Aspirin (Ecotrin) 81 mg DAILYWBKFT PO ; Start 06/01/18 at 08:00 Famotidine (Pepcid) 20 mg 1X ONCE PO Last administered on 05/31/18at 15:20; Start 05/31/18 at 15:30; Stop 05/31/18 at 15:31; Status DC Famotidine (Pepcid) 20 mg QHS PO Last administered on 05/31/18at 20:11; Start 05/31/18 at 21:00 Labetalol HCl (Normodyne Iv Push) 20 mg PRN Q2HR PRN IVP HYPERTENSION, SEE COMMENTS; Start 05/31/18 at 14:45 Labetalol HCl (Normodyne Iv Push) 20 mg 1X ONCE IVP Last administered on at 15:24; Start 05/31/18 at 15:15; Stop 05/31/18 at 15:16; Status DC Lisinopril (Prinivil) 20 mg DAILY PO Last administered on 05/31/18at 15:21; Start 05/31/18 at 15:30 Carvedilol (Coreg) 6.25 mg BIDWMEALS PO Last administered on 05/31/18at 17:38; Start 05/31/18 at 17:00 Atorvastatin Calcium (Lipitor) 20 mg QHS PO ; Start 05/31/18 at 21:00; Stop at 21:00; Status DC Atorvastatin Calcium (Lipitor) 40 mg QHS PO Last administered on 05/31/18at 20:10 ; Start 05/31/18 at 21:00 Aspirin (Baltazar Aspirin) 325 mg DAILY PO ; Start 06/01/18 at 09:00; Status UNV Cyclobenzaprine HCl (Flexeril) 10 mg TID PRN PO MUSCLE SPASMS; Start 05/31/18 at 20:45 Nitroglycerin (Nitrostat) 0.4 mg PRN Q5MIN PRN SL CHEST PAIN; Start 05/31/18 at 20:45; Status UNV Enoxaparin Sodium (Lovenox 40mg Syringe) 40 mg Q24H SQ Last administered on 05/31at 23:55; Start 05/31/18 at 21:00 Nitroglycerin (Nitrostat) 0.4 mg PRN Q5MIN PRN SL CHEST PAIN; Start 05/31/18 at 20:45 Regadenoson (Lexiscan) 0.4 mg 1X ONCE IV Last administered on 06/01/18at 10:38; Start 06/01/18 at 09:30; Stop 06/01/18 at 09:31; Status DC Active Scripts Active Reported Aspirin 325 Mg Tablet 1 Tab PO DAILY Cyclobenzaprine Hcl 10 Mg Tablet 1 Tab PO TID PRN NITROGLYCERIN SubLingual (Nitroglycerin) 0.4 Mg Tab.subl 0.4 Mg SL PRN Q5MIN PRN Vitals/I & O Vital Sign - Last 24 Hours 05/31/18 05/31/18 05/31/18 05/31/18 14:15 14:15 15:21 15:24 Temp 97.9 97.9 Pulse 87 81 81 Resp 20 B/P (MAP) 187/115 (139) 157/92 157/92 Pulse Ox 99 O2 Delivery Room Air 05/31/18 05/31/18 05/31/18 05/31/18 15:50 17:16 17:38 19:00 Temp 98.3 98.3 Pulse 80 69 69 78 Resp 15 B/P (MAP) 157/92 (113) 149/98 (115) 149/98 136/88 (104) Pulse Ox 98 O2 Delivery Room Air 05/31/18 05/31/18 06/01/18 06/01/18 20:00 23:00 03:00 07:00 Temp 98.2 98.3 97.7 98.2 98.3 97.7 Pulse 78 66 70 Resp 15 16 20 B/P (MAP) 136/88 (104) 123/73 (90) 121/80 (94) Pulse Ox 98 97 96 O2 Delivery Room Air Room Air Room Air Room Air 06/01/18 06/01/18 08:00 12:16 B/P (MAP) 120/93 (102) O2 Delivery Room Air Intake and Output 05/31/18 05/31/18 06/01/18 15:00 23:00 07:00 Intake Total 1040 ml Output Total 750 ml 0 ml Balance 290 ml 0 ml SACHIN AVILA MD Jun 01, 2018 12:53
[2018-06-01] MEDS ORDERED: ONDANSETRON PF 4 MG/2 ML VIAL. IV PRN (13:00)
[2018-06-01] MEDS ORDERED: DOCUSATE SODIUM 100 MG CAPSULE. PO PRN (13:00)
[2018-06-01] MEDS ORDERED: ACETAMINOPHEN 325 MG TABLET. PO PRN (13:00)
[2018-06-01] MEDS ORDERED: traMADol 50 MG TABLET PO PRN (13:00)
[2018-06-01] MEDS ORDERED: MORPHINE SULFATE 2 MG/ML VIAL. IV PRN (13:00)
--- NOTE | 2018-06-01 13:12 | CARD ---
MR#: [id number] Date of Study: 06/01/2018 Ordering Physician: PIYUSH LINDSEY, Referring Physician: LILIANE LARSON Tech: Kim Norman LAKEISHA APPROVED REPORT EXAM: Two-dimensional and M-mode echocardiogram with Doppler and color Doppler. Other Information Quality : Good INDICATION Hypertension/HCVD Chest Pain 2D DIMENSIONS Left Atrium(2D)2.9 (1.6-4.0cm)IVSd1.2 (0.7-1.1cm) Aortic Root(2D)3.3 (2.0-3.7cm)LVDd5.0 (3.9-5.9cm) LVOT Diameter2.5 (1.8-2.4cm)PWd1.2 (0.7-1.1cm) LVDs2.8 (2.5-4.0cm)FS (%) 27.0 % SV87.9 mlLVEF(%)55.0 (>50%) Aortic Valve AoV Peak Emanuel.117.5cm/sAoV VTI19.5cm AO Peak GR.5.5mmHgLVOT Peak Emanuel.91.7cm/s AO Mean GR.3mmHgAVA (VMAX)3.97cm2 RADHIKA (VTI)4.70cm2 Mitral Valve MV E Cmqgknzv20.2cm/sMV DECEL [id number] MV A Jnvftvdo51.7cm/sE/A Ratio0.7 Pulmonary Vein S1 Fepjlcjo29.0cm/sD2 Gsiwpyys46.3cm/s LEFT VENTRICLE The left ventricle is normal size. There is mild concentric left ventricular hypertrophy. The left ve ntricular systolic function is normal and the ejection fraction is within normal range. The Ejection Fraction is 55%. There is normal LV segmental wall motion. Transmitral Doppler flow pattern is Grade I-abnormal relaxation pattern. RIGHT VENTRICLE The right ventricle is normal size. The right ventricular systolic function is normal. ATRIA The left atrium size is normal. The right atrium size is normal. The interatrial septum is intact wit h no evidence for an atrial septal defect or patent foramen ovale as noted on 2-D or Doppler imaging. AORTIC VALVE The aortic valve is calcified but opens well. Doppler and Color Flow revealed no significant aortic r egurgitation. There is no significant aortic valvular stenosis. MITRAL VALVE The mitral valve is calcified but opens well. There is no evidence of mitral valve prolapse. There is no mitral valve stenosis. Doppler and Color Flow revealed no mitral valve regurgitation noted. TRICUSPID VALVE The tricuspid valve is normal in structure and function. Doppler and Color Flow revealed no tricuspid valve regurgitation noted. There is no tricuspid valve stenosis. PULMONIC VALVE The pulmonic valve is not well visualized. Doppler and Color Flow revealed trace pulmonic valvular re gurgitation. There is no pulmonic valvular stenosis. GREAT VESSELS The aortic root is normal in size. The ascending aorta is not well seen. The IVC is normal in size an d collapses >50% with inspiration. PERICARDIAL EFFUSION There is no evidence of significant pericardial effusion. Critical Notification Critical Value: No <Conclusion> The left ventricular systolic function is normal and the ejection fraction is within normal range. Th e Ejection Fraction is 55%. There is normal LV segmental wall motion. Signed by : Walter Blount, Electronically Approved : 06/01/2018 13:12:02
--- NOTE | 2018-06-01 14:41 | RAD ---
MR#: [id number] Date of Study: 06/01/2018 Ordering Physician: PIYUSH LINDSEY, Referring Physician: STEPHY TERESA Tech: Damon Dejesus NMTCB, ARRT (Makayla) (N) APPROVED REPORT Test Type: Pharmacological Stress Nurse/Tech: Jacqueline BLACKWELL Test Indications: CP, CAD Cardiac History: CAD, [place]=PTCA in 2015, HTN, Smoker Medications: See EMR Medical History: See EMR Resting ECG: SR w/ PVCs Resting Heart Rate: 74 bpm Resting Blood Pressure: 119/68mmHg Pretest Chest Pain: No chest pain Nurse/Tech Notes Heart tones regular, Lung sounds clear and diminished in the bases. Consent: The procedure was explained to the patient in lay terms. Informed consent was witnessed. Juanjose eout was entered into [employer]. History and Stress Test performed by HAMIDA Sun, GEOVANNY (R) (N) Pharm. Details Pharmacologic stress testing was performed using 0.4mg per 5ml of regadenoson given intravenously ove r 7-10 seconds. Stress Symptoms Pt c/o chest pressure in center of chest with no radiation at 4/10; 1 min into recovery. Chest press ure relieved 4 min into recovery. POST EXERCISE Reason for Termination: Infusion complete Max HR: 124 bpm Max Blood Pressure: 153/97mmHg Chest Pain: Yes. Chest pressure, see above. Arrhythmia: Yes. few PVCs ST Change: No. INTERPRETATION Stress EKG Conclusion: Baseline EKG showed sinus rhythm. No ischemic changes at peak stress. No arr hythmias. Imaging Protocol IMAGE PROTOCOL: Rest Tc-99m/stress Tc-99m 1 day Rest: Stress: Viability: Radiopharm.Tc99m TrjwplizzKg88b Sestamibi Ddyk83cLx 33mCi Duration 15min. 12min. Img Date 06/01/2018 06/01/2018 Inj-Img Brfg98ywz. 60min. Rest Admin Site:IV - Left AntecubitalAdministrator:HAMIDA Sun ARRT (R)(N) Stress Admin Site: IV - Left AntecubitalAdministrator: Norma Burr, STEPHYTCB, ARRT (R)(N) STRESS DATA End Diast. Vol.156.0mlLVEDV index BSA73.0ml End Syst. Vol.97.0mlLVESV index BSA45.0ml Myocardial Rowu841.0gEject. Xoewsnmp13.0% Stress Scores Regional WT3.00Summed WT29.00 Regional WM2.00Summed WM24.00 LV Perfusion Scintigraphic images showed moderate sized mixed perfusion defect involving the distal inferior wall and the entire apical wall consistent with small infarct and small to moderate amount of ischemia. Wall Motion Mild global left ventricle systolic dysfunction and moderate anteroapical wall hypokinesis with eject ion fraction calculated at 38%. LV Perf. Quant 17 Seg. SSS16.00 17 Seg. SRS13.00 17 Seg. SDS5.00 Stress Defect Extent (% LAD)50.00Rest Defect Extent (% LAD)27.50Rev. Defect Extent (% LAD)41.30 Stress Defect Extent (% LCX) 0.00Rest Defect Extent (% LCX)10.00Rev. Defect Extent (% LCX)0.00 Stress Defect Extent (% RCA)45.60Rest Defect Extent (% RCA)47.80Rev. Defect Extent (% RCA)18.90 Stress Defect Extent (% EDER)38.90Rest Defect Extent (% EDER)31.70Rev. Defect Extent (% EDER)23.50 Conclusion 1. Regadenoson cardioisotope stress test showed mixed perfusion defect involving the distal inferior wall and the entire apical wall consistent with small infarct and small to moderate amount of ischemi a. 2. Mild global left ventricle systolic dysfunction and moderate anteroapical wall hypokinesis with ej ection fraction calculated at 38%. 3. Intermediate risk for cardiac events. Signed by : Chito Gonzalez, Electronically Approved : 06/01/2018 14:40:39
[2018-06-01 15:00] VITALS: BP 116/68
--- NOTE | 2018-06-01 15:51 | PDOC ---
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 MACHINE 06/01/18 1550: CARDIO Progress Notes Date and Time Date of Service 06/01/2018 Time of Evaluation 1533 Subjective Subjective: Other (chest pain with elevated BP during MPI; resolved with treatment of BP) Vitals Vitals Vital Signs Date Time Temp Pulse Resp B/P (MAP) Pulse Ox O2 Delivery O2 Flow Rate FiO2 06/01/18 12:16 120/93 (102) 06/01/18 08:00 Room Air 06/01/18 07:00 97.7 70 20 96 97.7 Weight Weight [ ] Input and Output Intake and Output Intake and Output 06/01/18 07:00 Intake Total 1040 ml Output Total 750 ml Balance 290 ml Intake Oral 1040 ml Output Urine Total 750 ml # Voids 2 Laboratory Labs Laboratory Tests Test 05/31/18 17:35 05/31/18 18:30 06/01/18 08:25 Urine Opiates Screen Neg (NEG) Urine Methadone Screen Neg (NEG) Urine Barbiturates Neg (NEG) Urine Phencyclidine Screen Neg (NEG) Urine Amphetamine/Methamphetamine Neg (NEG) Urine Benzodiazepines Screen Neg (NEG) Urine Cocaine Screen Neg (NEG) Urine Cannabinoids Screen Pos (NEG) Urine Ethyl Alcohol Neg (NEG) Troponin I Quantitative < 0.017 ng/mL (0.000-0.055) White Blood Count 7.7 x10^3/uL (4.0-11.0) Red Blood Count 5.32 x10^6/uL (4.30-5.70) Hemoglobin 16.8 g/dL (13.0-17.5) Hematocrit 48.0 % (39.0-53.0) Mean Corpuscular Volume 90 fL (79-100) Mean Corpuscular Hemoglobin 32 pg (25-35) Mean Corpuscular Hemoglobin Concent 35 g/dL (31-37) Red Cell Distribution Width 12.8 % (11.5-14.5) Platelet Count 172 x10^3/uL (140-400) Neutrophils (%) (Auto) 61 % (31-73) Lymphocytes (%) (Auto) 24 % (24-48) Monocytes (%) (Auto) 9 % (0-9) Eosinophils (%) (Auto) 4 % (0-3) Basophils (%) (Auto) 1 % (0-3) Neutrophils # (Auto) 4.7 x10^3uL (1.8-7.7) Lymphocytes # (Auto) 1.9 x10^3/uL (1.0-4.8) Monocytes # (Auto) 0.7 x10^3/uL (0.0-1.1) Eosinophils # (Auto) 0.3 x10^3/uL (0.0-0.7) Basophils # (Auto) 0.1 x10^3/uL (0.0-0.2) Sodium Level 136 mmol/L (136-145) Potassium Level 4.3 mmol/L (3.5-5.1) Chloride Level 104 mmol/L (98-107) Carbon Dioxide Level 26 mmol/L (21-32) Anion Gap 6 (6-14) Blood Urea Nitrogen 15 mg/dL (8-26) Creatinine 1.2 mg/dL (0.7-1.3) Estimated GFR (Cockcroft-Gault) 62.0 Glucose Level 116 mg/dL (70-99) Calcium Level 8.7 mg/dL (8.5-10.1) Physical Exam HEENT: Neck Supple W Full Motion Chest: Symmetric LUNGS: Clear to Auscultation Heart: S1S2, no gallops Abdomen: Soft N/T Extremities: No Edema Neurology: alert, oriented Assessment Assessment 1. 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 Accelerated HTN --likely due to non-adherence with medications --controlled with oral meds 3. mixed hyperlipidemia --increase statin dose to maximal 8. substance abuse --tobacco & THC YASMEEN SHIELDS MD 06/01/18 8844: CARDIO Progress Notes Plan Plan Pt. seen and examined. Agree with above FLIGHT TEST SUPERVISOR note. Would proceed with cath but patient wants to think about it. Understands risks/ benefits of waiting. Supportive care. Continue medical therapy with statin, asa, bp meds. MARCE FELIX APRN Jun 01, 2018 15:50 YASMEEN SHIELDS MD Jun 01, 2018 17:41
[2018-06-01 17:20] VITALS: BP 116/68
[2018-06-01] MEDS ORDERED: ATORVASTATIN CALCIUM 40 MG TABLET. PO SCH (21:00)
--- NOTE | 2018-06-02 09:39 | PDOC3 ---
Discharge Summary [facility] Date of Admission: May 31, 2018 Discharge Date: Jun 02, 2018 Admitting Diagnosis Chest pain, 2/2 HTN urgency vs unstable angina HTN urgency HLP Metabolic syndrome Tobaccoism with likely COPD h/o CAD: cardiac arrest in 2003 with stent placement and 2014 stent placement Noncompliance: has not utilized cardiac meds but has been using NTG due to financial constraints. Marijuana use Final Diagnosis CONSULTS card Brief Hospital Course Mr. Willoughby is a 58 old M, /h/o CAD with stents, smoker, non compliant with meds 2/2 insurance issues, came for chest pain. MPI intermediate risk, card plan to do cath, however, pt seemed not willing to yesterday, and dced by colleague later afternoon. i talked to card today. dc time 35min. General: Alert, Oriented X3, Cooperative, mild distress Heart: Regular rate (SR), Normal S1, Normal S2, Other (2/6 systolic murmur to LLS border) Lungs: Clear Abdomen: Normal bowel sounds, Soft, No tenderness Extremities: No cyanosis Skin: No rashes Disposition home CONDITION AT DISCHARGE: Improved Scheduled Aspirin (Aspirin), 1 TAB PO DAILY, (Reported) Scheduled PRN Cyclobenzaprine Hcl (Cyclobenzaprine Hcl), 1 TAB PO TID PRN for MUSCLE SPASMS, ( Reported) Nitroglycerin (NITROGLYCERIN SubLingual), 0.4 MG SL PRN Q5MIN PRN for CHEST PAIN , (Reported) SACHIN AVILA MD Jun 02, 2018 09:39
== END 2018-06-01 18:00 | disposition home or self-care (01) | DRG 305 ==
LOC: ER 10:59 → 5 SOUTH 12:30
PROVIDERS: ADMIT Family Medicine; ATTEND Family Medicine
DX: I16.0 Hypertensive urgency (principal); I25.110 Atherosclerotic heart disease of native coronary artery with unstable angina pectoris; E78.2 Mixed hyperlipidemia; E88.81 Metabolic syndrome and other insulin resistance; F12.10 Cannabis abuse, uncomplicated; F17.210 Nicotine dependence, cigarettes, uncomplicated; I10 Essential (primary) hypertension; M48.00 Spinal stenosis, site unspecified; F19.10 Other psychoactive substance abuse, uncomplicated; J44.9 Chronic obstructive pulmonary disease, unspecified; M19.042 Primary osteoarthritis, left hand; M19.041 Primary osteoarthritis, right hand; I25.2 Old myocardial infarction; Z79.82 Long term (current) use of aspirin; Z82.49 Family history of ischemic heart disease and other diseases of the circulatory system; Z86.74 Personal history of sudden cardiac arrest; Z91.14 Patient's other noncompliance with medication regimen; Z95.5 Presence of coronary angioplasty implant and graft; Z88.0 Allergy status to penicillin; Z71.6 Tobacco abuse counseling
CPT/HCPCS: 36415; 71045; 78452; 80048; 80061; 80307; 83880; 84443; 84484; 85025; 85379; 85610; 93005; 93017; 93306; 96374; 96375; 96376; 99406; A9500; J1650; J2785; J3490; 99285-25; G0479

== ENCOUNTER 2018-06-11 20:14 | Inpatient (IN) | payer MEDICARE ==
[~2018-06-11] VITALS: Ht 180.3 cm; Wt 94.4 kg
[~2018-06-11 20:14] MED LIST: ASPI325T8 PO; CYCL10TA2 PO; NITR0.4T22 SL
[2018-06-11] MEDS ORDERED: NITROGLYCERIN PREMIX 250 ML IV ONE ×3 (20:30→23:00)
[2018-06-11] MEDS ORDERED: HEPARIN for IV BOLUS 10,000 UNIT/10 ML VIAL. IV ONE (20:30)
[2018-06-11 20:31] LABS: BASO # 0.2 x10^3/uL (0.0-0.2); BASO % 2 % (0-3); EOS # 0.4 x10^3/uL (0.0-0.7); EOS % 3 % (0-3); HEMATOCRIT 47.3 % (39.0-53.0); HEMOGLOBIN 16.7 g/dL (13.0-17.5); LYMPH % 29 % (24-48); MEAN CORPUSCULAR HEMOGLOBIN 31 pg (25-35); MEAN CORPUSCULAR HGB CONC 35 g/dL (31-37); MEAN CORPUSCULAR VOLUME 89 fL (79-100); MONO # 1.2 x10^3/uL (0.0-1.1); MONO % 11 % (0-9); NEUT # 5.7 x10^3uL (1.8-7.7); NEUT % 54 % (31-73); PLATELET COUNT 249 x10^3/uL (140-400); RED BLOOD COUNT 5.32 x10^6/uL (4.30-5.70); RED CELL DISTRIBUTION WIDTH 12.6 % (11.5-14.5); WHITE BLOOD COUNT 10.5 x10^3/uL (4.0-11.0)
--- NOTE | 2018-06-11 20:34 | PHYS DOC ---
Past Medical History Past Medical History: CAD, Diabetes-Type II (diet controlled), [place] Additional Past Medical Histor: stenosis to spine Past Surgical History: Other Additional Past Surgical Histo: cardiac stents; r hand Smoking: Cigarettes, Greater than 1 pack/day Alcohol Use: None Drug Use: Marijuana Adult General Chief Complaint Chief Complaint: CHEST PAIN-CARDIAC NATURE HPI HPI 58 y/o male presents via EMS as STEMI activation. Patient reports history of prior CAD with stent placement. Reports risk factors of diet controlled DM, HTN, hyperchol, and smoking history. Reports pain started with approximately 1.5 hours prior to calling EMS. Reports associated bilateral arm pain, shortness of breath, and nausea. Denies trauma. Denies fever/chills. Denies leg swelling and calf tenderness. Reports recent admission to [facility] with stress test on 06/01/18 which per [facility] review was abnormal. Patient was advised he would need a catheterization but patient elected to forego and have as outpatient. Review of Systems Review of Systems Constitutional: Denies fever or chills; reports generalized malaise. Eyes: Denies change in visual acuity, redness, or eye pain [] HENT: Denies nasal congestion or sore throat [] Respiratory: Reports shortness of breath, reports some cough Cardiovascular: Reports chest pain, denies leg swelling GI: Reports nausea; Denies abdominal pain, vomiting, or diarrhea [] : Denies dysuria or hematuria [] Musculoskeletal: Denies back pain or leg pain; reports radiation of pain to bilateral arms Integument: Denies rash or skin lesions [] Neurologic: Denies headache, focal weakness or sensory changes [] Complete systems were reviewed and found to be within normal limits, except as documented in this note. Current Medications Current Medications Current Medications Medications (Trade) Dose Ordered Sig/Moiz Start Time Stop Time Status Last Admin Dose Admin Bivalirudin (Angiomax) 250 mg STK-MED ONCE 06/11/18 21:21 06/11/18 21:22 DC Fentanyl Citrate (Fentanyl 2ml Vial) 100 mcg STK-MED ONCE 06/11/18 20:51 06/11/18 20:52 DC Heparin Sodium (Porcine) (Heparin Sodium) 4,000 unit 1X ONCE 06/11/18 20:30 06/11/18 20:31 DC 06/11/18 20:30 4,000 UNIT Heparin Sodium/ Sodium Chloride 500 ml @ As Directed STK-MED ONCE 06/11/18 21:23 06/11/18 21:24 DC Iodixanol (Visipaque 320) 100 ml STK-MED ONCE 06/11/18 20:52 06/11/18 20:53 DC Lidocaine HCl (Xylocaine 1% Pf 30ml Vial) 30 ml STK-MED ONCE 06/11/18 20:52 06/11/18 20:53 DC Midazolam HCl (Versed) 2 mg STK-MED ONCE 06/11/18 20:51 06/11/18 20:52 DC Nitroglycerin/ Dextrose 250 ml @ 0 mls/hr 1X ONCE 06/11/18 20:30 06/11/18 20:31 DC 06/11/18 20:32 5 MLS/HR Sodium Chloride 1,000 ml @ 1,000 mls/hr 1X ONCE 06/11/18 20:45 06/11/18 21:05 DC 06/11/18 20:44 1,000 MLS/HR Allergies Allergies Allergies Coded Allergies Type Severity Reaction Last Updated Verified Penicillins Allergy Unknown hives 05/31/18 Yes Physical Exam Physical Exam Constitutional: Well developed, well nourished, uncomfortable, non-toxic appearance. [] HENT: Normocephalic, atraumatic, oropharynx moist, Eyes: conjunctiva normal, no discharge. [] Neck: Normal range of motion, no tenderness, supple Cardiovascular: Heart rate regular rhythm, no murmur [] Lungs & Thorax: Bilateral breath sounds bilaterally, scattered wheezing noted bilaterally Abdomen: Soft, no tenderness, no masses, no pulsatile masses. [] Skin: Warm, dry, no erythema, no rash. [] ] Extremities: No tenderness, radial pulses +2 bilaterally, ROM intact, no edema. [] Neurologic: Alert and oriented X 3, normal motor function, normal sensory function, no focal deficits noted. [] Psychologic: Affect normal, judgement normal, mood normal. [] Current Patient Data Vital Signs Vital Signs Date Time Temp Pulse Resp B/P (MAP) Pulse Ox O2 Delivery O2 Flow Rate FiO2 06/11/18 20:15 98.2 83 20 199/113 (141) 100 Room Air 2.0 98.2 Lab Values Laboratory Tests Test 06/11/18 20:20 White Blood Count 10.5 x10^3/uL (4.0-11.0) Red Blood Count 5.32 x10^6/uL (4.30-5.70) Hemoglobin 16.7 g/dL (13.0-17.5) Hematocrit 47.3 % (39.0-53.0) Mean Corpuscular Volume 89 fL (79-100) Mean Corpuscular Hemoglobin 31 pg (25-35) Mean Corpuscular Hemoglobin Concent 35 g/dL (31-37) Red Cell Distribution Width 12.6 % (11.5-14.5) Platelet Count 249 x10^3/uL (140-400) Neutrophils (%) (Auto) 54 % (31-73) Lymphocytes (%) (Auto) 29 % (24-48) Monocytes (%) (Auto) 11 % (0-9) H Eosinophils (%) (Auto) 3 % (0-3) Basophils (%) (Auto) 2 % (0-3) Neutrophils # (Auto) 5.7 x10^3uL (1.8-7.7) Lymphocytes # (Auto) 3.0 x10^3/uL (1.0-4.8) Monocytes # (Auto) 1.2 x10^3/uL (0.0-1.1) H Eosinophils # (Auto) 0.4 x10^3/uL (0.0-0.7) Basophils # (Auto) 0.2 x10^3/uL (0.0-0.2) Prothrombin Time 12.9 SEC (11.7-14.0) Prothrombin Time INR 1.0 (0.8-1.1) Sodium Level 140 mmol/L (136-145) Potassium Level 4.2 mmol/L (3.5-5.1) Chloride Level 102 mmol/L (98-107) Carbon Dioxide Level 27 mmol/L (21-32) Anion Gap 11 (6-14) Blood Urea Nitrogen 13 mg/dL (8-26) Creatinine 1.2 mg/dL (0.7-1.3) Estimated GFR (Cockcroft-Gault) 62.0 BUN/Creatinine Ratio 11 (6-20) Glucose Level 132 mg/dL (70-99) H Calcium Level 9.7 mg/dL (8.5-10.1) Magnesium Level 2.0 mg/dL (1.8-2.4) Total Bilirubin 0.4 mg/dL (0.2-1.0) Aspartate Amino Transferase (AST) 23 U/L (15-37) Alanine Aminotransferase (ALT) 31 U/L (16-63) Alkaline Phosphatase 84 U/L (46-116) Creatine Kinase 175 U/L (39-308) Creatine Kinase MB (Mass) 1.7 ng/mL (0.0-3.6) Creatine Kinase MB Relative Index 1.0 % (0-4) Troponin I Quantitative < 0.017 ng/mL (0.000-0.055) MG-Bni-D-Type Natriuretic Peptide 201 pg/mL (0-124) H Total Protein 7.9 g/dL (6.4-8.2) Albumin 3.9 g/dL (3.4-5.0) Albumin/Globulin Ratio 1.0 (1.0-1.7) Lipase 147 U/L (73-393) Laboratory Tests 06/11/18 20:20 Laboratory Tests 06/11/18 20:20 EKG EKG @2015: NSR at 82bpm, Significant ST elevation in V1-V4 with slight ST depression in II-III and aVF consistent for STEMI, compared to prior EKG per [facility] review from 05/31/2018 with significant change from prior. Radiology/Procedures Radiology/Procedures PROCEDURE: PORTABLE CHEST 1V Chest radiograph 06/11/2018 8:33 PM INDICATION: STEMI COMPARISON: May 31, 2018 TECHNIQUE: Portable upright frontal view of the chest is provided. FINDINGS: The cardiomediastinal silhouette is within normal limits. There are no pleural effusions. There is no pulmonary vascular congestion. There is no pneumothorax. The lungs are clear. No significant osseous abnormality is identified. IMPRESSION: No acute cardiopulmonary process. Electronically signed by: Catarina Moralez MD (06/11/2018 8:49 PM) [facility] Course & Med Decision Making Course & Med Decision Making Pertinent Labs and Imaging studies reviewed. (See chart for details) Patient presents via EMS as STEMI activation. Significant cardiac history and risk factors. EMS transmitted EKG with slight ST elevation noted in V1-V3 without reciprocal changes. Discussed EKG with Dr. Byers who also evaluated EKG. Patient received additional EKG upon arrival to ED with significant worsening of ST elevation. CODE STEMI called. Heparin bolus given. Nitro gtt and fentynyl provided for pain. EMS previously gave nitro SL and Aspirin 324mg. Dr. Byers contacted regarding new EKG findings. 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 Labs obtained and posted to chart. Initial troponin WNL. CXR without acute process. Patient transported to [facility] for further evaluation and treatment. Patient requiring admission for further evaluation and treatment. Discussed with Dr. Duarte (hospitalist) who is in agreement with admission. Discussed findings and plan with patient, who acknowledges understanding and agreement. Dragon Disclaimer Dragon Disclaimer This electronic medical record was generated, in whole or in part, using a voice recognition dictation system. Departure Departure Impression: Primary Impression: STEMI (ST elevation myocardial infarction) Disposition: 09 ADMITTED INPATIENT Admitting Physician: Parvin Duarte Condition: CRITICAL Referrals: NO PCP (PCP) Critical Care Time Critical care time was 30-74 minutes which includes time at bedside, spent in discussion of patient's care with specialists and/or family members, with interpretation of laboratory and/or radiological studies and is exclusive of procedures. Problem Qualifiers Primary Impression: STEMI (ST elevation myocardial infarction) Involved coronary artery: unspecified coronary artery Qualified Codes: I21.3 - ST elevation (STEMI) myocardial infarction of unspecified site ULI FORD DO Jun 11, 2018 20:34
[2018-06-11 20:39] LABS: CALCIUM 9.7 mg/dL (8.5-10.1); CREATININE 1.2 mg/dL (0.7-1.3); POTASSIUM 4.2 mmol/L (3.5-5.1)
[2018-06-11 20:41] LABS: PROTHROMBIN TIME PATIENT 12.9 SEC (11.7-14.0)
[2018-06-11] MEDS ORDERED: IV NORMAL SALINE 1000ML BAG 1,000 ML IV ONE (20:45)
[2018-06-11] MEDS ORDERED: fentaNYL PF VIAL 100 MCG/2 ML VIAL IV ONE ×2 (20:45→22:00)
[2018-06-11 20:46] LABS: ALBUMIN 3.9 g/dL (3.4-5.0); TOTAL BILIRUBIN 0.4 mg/dL (0.2-1.0); TOTAL PROTEIN 7.9 g/dL (6.4-8.2)
[2018-06-11] MEDS ORDERED: MIDAZOLAM HCL/PF 2 MG/2 ML VIAL. ONE (20:51)
[2018-06-11] MEDS ORDERED: fentaNYL PF VIAL 100 MCG/2 ML VIAL ONE (20:51)
[2018-06-11] MEDS ORDERED: LIDOCAINE 1% PF 30 ML VIAL. ONE (20:52)
[2018-06-11] MEDS ORDERED: IODIXANOL 320 MG/ML 100 ML VIAL. ONE ×2 (20:52→21:24)
--- NOTE | 2018-06-11 20:52 | RAD ---
Chest radiograph 06/11/2018 8:33 PM INDICATION: STEMI COMPARISON: May 31, 2018 TECHNIQUE: Portable upright frontal view of the chest is provided. FINDINGS: The cardiomediastinal silhouette is within normal limits. There are no pleural effusions. There is no pulmonary vascular congestion. There is no pneumothorax. The lungs are clear. No significant osseous abnormality is identified. IMPRESSION: No acute cardiopulmonary process. Electronically signed by: Catarina Moralez MD (06/11/2018 8:49 PM) [facility]
[2018-06-11] MEDS ORDERED: BIVALIRUDIN 250 MG VIAL. IV ONE ×2 (21:21→22:00)
[2018-06-11] MEDS ORDERED: TICAGRELOR 90 MG TABLET. ONE (21:40)
[2018-06-11] MEDS ORDERED: LIDOCAINE 1% PF 30 ML VIAL. INJ ONE (22:00)
[2018-06-11] MEDS ORDERED: IODIXANOL 320 MG/ML 100 ML VIAL. IART ONE (22:00)
[2018-06-11] MEDS ORDERED: MIDAZOLAM HCL/PF 2 MG/2 ML VIAL. IV ONE (22:00)
[2018-06-11] MEDS ORDERED: TICAGRELOR 90 MG TABLET. PO ONE (22:00)
--- NOTE | 2018-06-11 22:09 | PDOC2 ---
CONSULT Date of Consult Date of Consult DATE: 06/11/18 TIME: 22:03 Reason for Consult Reason for Consult: S pain, possible ST elevated myocardial infarction Referring Physician Referring Physician: Dr. Hernández Identification/Chief Complaint Chief Complaint Chest pain Source Source: Chart review, Patient History of Present Illness Reason for Visit: The patient is a 58-year-old male who developed chest pain approximately 2 hours ago. He has a history of previous myocardial infarction and stents. Paramedics were called and his EKG showed anterior ST segment changes but no reciprocal changes. In the emergency room EKG again showed further anterior ST segment changes. The patient continued to have chest pain. He was treated with heparin, aspirin and pain control. Despite this his chest pain continued. Past Medical History Cardiovascular: CAD, HTN, [place], Hyperlipidemia Pulmonary: COPD GI: No pertinent hx Heme/Onc: No pertinent hx Hepatobiliary: No pertinent hx Psych: No pertinent hx Musculoskeletal: low back pain, Osteoarthritis Rheumatologic: No pertinent hx Infectious disease: No pertinent hx Renal/: No pertinent hx Endocrine: Diabetes Past Surgical History Past Surgical History: Other (spinal stenosis) Family History Family History: Coronary Artery Disease Social History Social History: Grandparents 1 pack per day ALCOHOL: none Drugs: Marijuana Lives: with Family Current Problem List Problem List Problems Medical Problems: (1) STEMI (ST elevation myocardial infarction) Status: Acute Current Medications Current Medications Current Medications Heparin Sodium (Porcine) (Heparin Sodium) 4,000 unit 1X ONCE IV Last administered on 06/11/18at 20:30; Start 06/11/18 at 20:30; Stop 06/11/18 at 20:31 ; Status DC Nitroglycerin/ Dextrose 250 ml @ 0 mls/hr 1X ONCE IV Last administered on 06/11at 20:32; Start 06/11/18 at 20:30; Stop 06/11/18 at 20:31; Status DC Fentanyl Citrate (Fentanyl 2ml Vial) 50 mcg 1X ONCE IV Last administered on at 20:44; Start 06/11/18 at 20:45; Stop 06/11/18 at 20:46; Status DC Sodium Chloride 1,000 ml @ 1,000 mls/hr 1X ONCE IV Last administered on at 20:44; Start 06/11/18 at 20:45; Stop 06/11/18 at 21:05; Status DC Fentanyl Citrate (Fentanyl 2ml Vial) 100 mcg STK-MED ONCE .ROUTE ; Start at 20:51; Stop 06/11/18 at 20:52; Status DC Midazolam HCl (Versed) 2 mg STK-MED ONCE .ROUTE ; Start 06/11/18 at 20:51; Stop 06/11/18 at 20:52; Status DC Iodixanol (Visipaque 320) 100 ml STK-MED ONCE .ROUTE ; Start 06/11/18 at 20:52; Stop 06/11/18 at 20:53; Status DC Lidocaine HCl (Xylocaine 1% Pf 30ml Vial) 30 ml STK-MED ONCE .ROUTE ; Start at 20:52; Stop 06/11/18 at 20:53; Status DC Heparin Sodium/ Sodium Chloride 1,000 ml @ As Directed STK-MED ONCE .ROUTE ; Start 06/11/18 at 20:52; Stop 06/11/18 at 20:53; Status DC Bivalirudin (Angiomax) 250 mg STK-MED ONCE IV ; Start 06/11/18 at 21:21; Stop at 21:22; Status DC Heparin Sodium/ Sodium Chloride 500 ml @ As Directed STK-MED ONCE .ROUTE ; Start 06/11/18 at 21:23; Stop 06/11/18 at 21:24; Status DC Iodixanol (Visipaque 320) 100 ml STK-MED ONCE .ROUTE ; Start 06/11/18 at 21:24; Stop 06/11/18 at 21:25; Status DC Heparin Sodium/ Sodium Chloride (HEPARIN for ARTERIAL LINE FLUSH) 1,000 unit 1X ONCE IART Last administered on 06/11/18at 21:53; Start 06/11/18 at 22:00; Stop 06/11/18 at 22:01; Status DC Heparin Sodium/ Sodium Chloride (HEPARIN for ARTERIAL LINE FLUSH) 1,000 unit 1X ONCE IART Last administered on 06/11/18at 21:53; Start 06/11/18 at 22:00; Stop 06/11/18 at 22:01; Status DC Midazolam HCl (Versed) 2 mg 1X ONCE IV Last administered on 06/11/18at 21:54; Start 06/11/18 at 22:00; Stop 06/11/18 at 22:01; Status DC Fentanyl Citrate (Fentanyl 2ml Vial) 100 mcg 1X ONCE IV Last administered on at 21:55; Start 06/11/18 at 22:00; Stop 06/11/18 at 22:01; Status DC Iodixanol (Visipaque 320) 100 ml 1X ONCE IART Last administered on 06/11/18at 21:52; Start 06/11/18 at 22:00; Stop 06/11/18 at 22:01; Status DC Bivalirudin (Angiomax) 250 mg 1X ONCE IV Last administered on 06/11/18at 21:54 ; Start 06/11/18 at 22:00; Stop 06/11/18 at 22:01; Status DC Lidocaine HCl (Xylocaine 1% Pf 30ml Vial) 30 ml 1X ONCE INJ Last administered on 06/11/18at 21:55; Start 06/11/18 at 22:00; Stop 06/11/18 at 22:01; Status DC Ticagrelor (Brilinta) 90 mg STK-MED ONCE .ROUTE ; Start 06/11/18 at 21:40; Stop 06/11/18 at 21:41; Status DC Ticagrelor (Brilinta) 180 mg 1X ONCE PO Last administered on 06/11/18at 21:55; Start 06/11/18 at 22:00; Stop 06/11/18 at 22:01; Status DC Nitroglycerin/ Dextrose 250 ml @ 0 mls/hr 1X ONCE IV Last administered on 06/11at 21:56; Start 06/11/18 at 22:00; Stop 06/11/18 at 22:01; Status DC Heparin Sodium/ Sodium Chloride 500 ml @ As Directed STK-MED ONCE .ROUTE ; Start 06/11/18 at 21:53; Stop 06/11/18 at 21:54; Status DC Active Scripts Active Reported Aspirin 325 Mg Tablet 1 Tab PO DAILY Cyclobenzaprine Hcl 10 Mg Tablet 1 Tab PO TID PRN NITROGLYCERIN SubLingual (Nitroglycerin) 0.4 Mg Tab.subl 0.4 Mg SL PRN Q5MIN PRN Allergies Allergies: Coded Allergies: Penicillins (Verified Allergy, Unknown, hives, 05/31/18) ROS Respiratory: YES: Shortness of breath Cardiovascular: yes Chest Pain Physical Exam General: moderate distress HEENT: Atraumatic Lungs: Clear to auscultation Heart: Other (rate of 90 with a regular rhythm) Abdomen: Normal bowel sounds Vitals VITALS Vital Signs Date Time Temp Pulse Resp B/P (MAP) Pulse Ox O2 Delivery O2 Flow Rate FiO2 06/11/18 21:55 16 96 Room Air 06/11/18 20:15 98.2 83 199/113 (141) 2.0 98.2 Labs Labs Laboratory Tests Test 06/11/18 20:20 White Blood Count 10.5 x10^3/uL (4.0-11.0) Red Blood Count 5.32 x10^6/uL (4.30-5.70) Hemoglobin 16.7 g/dL (13.0-17.5) Hematocrit 47.3 % (39.0-53.0) Mean Corpuscular Volume 89 fL (79-100) Mean Corpuscular Hemoglobin 31 pg (25-35) Mean Corpuscular Hemoglobin Concent 35 g/dL (31-37) Red Cell Distribution Width 12.6 % (11.5-14.5) Platelet Count 249 x10^3/uL (140-400) Neutrophils (%) (Auto) 54 % (31-73) Lymphocytes (%) (Auto) 29 % (24-48) Monocytes (%) (Auto) 11 % (0-9) Eosinophils (%) (Auto) 3 % (0-3) Basophils (%) (Auto) 2 % (0-3) Neutrophils # (Auto) 5.7 x10^3uL (1.8-7.7) Lymphocytes # (Auto) 3.0 x10^3/uL (1.0-4.8) Monocytes # (Auto) 1.2 x10^3/uL (0.0-1.1) Eosinophils # (Auto) 0.4 x10^3/uL (0.0-0.7) Basophils # (Auto) 0.2 x10^3/uL (0.0-0.2) Prothrombin Time 12.9 SEC (11.7-14.0) Prothromb Time International Ratio 1.0 (0.8-1.1) Sodium Level 140 mmol/L (136-145) Potassium Level 4.2 mmol/L (3.5-5.1) Chloride Level 102 mmol/L (98-107) Carbon Dioxide Level 27 mmol/L (21-32) Anion Gap 11 (6-14) Blood Urea Nitrogen 13 mg/dL (8-26) Creatinine 1.2 mg/dL (0.7-1.3) Estimated GFR (Cockcroft-Gault) 62.0 BUN/Creatinine Ratio 11 (6-20) Glucose Level 132 mg/dL (70-99) Calcium Level 9.7 mg/dL (8.5-10.1) Magnesium Level 2.0 mg/dL (1.8-2.4) Total Bilirubin 0.4 mg/dL (0.2-1.0) Aspartate Amino Transf (AST/SGOT) 23 U/L (15-37) Alanine Aminotransferase (ALT/SGPT) 31 U/L (16-63) Alkaline Phosphatase 84 U/L (46-116) Creatine Kinase 175 U/L (39-308) Creatine Kinase MB (Mass) 1.7 ng/mL (0.0-3.6) Creatine Kinase MB Relative Index 1.0 % (0-4) Troponin I Quantitative < 0.017 ng/mL (0.000-0.055) PT-Gag-I-Type Natriuretic Peptide 201 pg/mL (0-124) Total Protein 7.9 g/dL (6.4-8.2) Albumin 3.9 g/dL (3.4-5.0) Albumin/Globulin Ratio 1.0 (1.0-1.7) Lipase 147 U/L (73-393) Laboratory Tests Test 06/11/18 20:20 White Blood Count 10.5 x10^3/uL (4.0-11.0) Red Blood Count 5.32 x10^6/uL (4.30-5.70) Hemoglobin 16.7 g/dL (13.0-17.5) Hematocrit 47.3 % (39.0-53.0) Mean Corpuscular Volume 89 fL (79-100) Mean Corpuscular Hemoglobin 31 pg (25-35) Mean Corpuscular Hemoglobin Concent 35 g/dL (31-37) Red Cell Distribution Width 12.6 % (11.5-14.5) Platelet Count 249 x10^3/uL (140-400) Neutrophils (%) (Auto) 54 % (31-73) Lymphocytes (%) (Auto) 29 % (24-48) Monocytes (%) (Auto) 11 % (0-9) Eosinophils (%) (Auto) 3 % (0-3) Basophils (%) (Auto) 2 % (0-3) Neutrophils # (Auto) 5.7 x10^3uL (1.8-7.7) Lymphocytes # (Auto) 3.0 x10^3/uL (1.0-4.8) Monocytes # (Auto) 1.2 x10^3/uL (0.0-1.1) Eosinophils # (Auto) 0.4 x10^3/uL (0.0-0.7) Basophils # (Auto) 0.2 x10^3/uL (0.0-0.2) Prothrombin Time 12.9 SEC (11.7-14.0) Prothromb Time International Ratio 1.0 (0.8-1.1) Sodium Level 140 mmol/L (136-145) Potassium Level 4.2 mmol/L (3.5-5.1) Chloride Level 102 mmol/L (98-107) Carbon Dioxide Level 27 mmol/L (21-32) Anion Gap 11 (6-14) Blood Urea Nitrogen 13 mg/dL (8-26) Creatinine 1.2 mg/dL (0.7-1.3) Estimated GFR (Cockcroft-Gault) 62.0 BUN/Creatinine Ratio 11 (6-20) Glucose Level 132 mg/dL (70-99) Calcium Level 9.7 mg/dL (8.5-10.1) Magnesium Level 2.0 mg/dL (1.8-2.4) Total Bilirubin 0.4 mg/dL (0.2-1.0) Aspartate Amino Transf (AST/SGOT) 23 U/L (15-37) Alanine Aminotransferase (ALT/SGPT) 31 U/L (16-63) Alkaline Phosphatase 84 U/L (46-116) Creatine Kinase 175 U/L (39-308) Creatine Kinase MB (Mass) 1.7 ng/mL (0.0-3.6) Creatine Kinase MB Relative Index 1.0 % (0-4) Troponin I Quantitative < 0.017 ng/mL (0.000-0.055) LN-Qgc-X-Type Natriuretic Peptide 201 pg/mL (0-124) Total Protein 7.9 g/dL (6.4-8.2) Albumin 3.9 g/dL (3.4-5.0) Albumin/Globulin Ratio 1.0 (1.0-1.7) Lipase 147 U/L (73-393) Images Images Pending Assessment/Plan Assessment/Plan 1. Chest pain. Patient has continued chest pain. EKG shows anterior ST elevation but no clear reciprocal changes. Patient has a history of previous myocardial infarction and coronary stenting. In this setting recommended emergency cardiac catheterization. Risks and benefits were discussed with the patient. He is agreed to proceed. He is being brought emergently to the catheterization lab. 2. Hypertension. Patient's blood pressure significantly elevated. He continues in pain. We'll initially treat with nitroglycerin and start oral medications when able. 3. History of. Hyperlipidemia. We'll check lab and start statin if indicated. 4. Reported diet controlled diabetes. As per the primary service. 5. Tobacco abuse. One pack per day. We will discuss with the patient. Thank you for allowing us to participate in the care of your patient. PANKAJ BLACKMON MD Jun 11, 2018 22:09
[2018-06-11] MEDS ORDERED: AMIODARONE 150 MG in IV DEXTROSE 5% 100ML 100 ML IV PRN (22:15)
[2018-06-11] MEDS ORDERED: ATROPINE 0.5 MG/5 ML DISP.SYRINGE. IV PRN (22:15)
[2018-06-11] MEDS ORDERED: LISINOPRIL 5 MG TABLET. PO SCH (22:15)
[2018-06-11] MEDS ORDERED: 0.9 % SODIUM CHLORIDE 10 ML DISP.SYRIN. IV PRN (22:15)
[2018-06-11] MEDS ORDERED: LIDOCAINE 2% 100 MG/5 ML SYRINGE. IV PRN (22:15)
[2018-06-11] MEDS ORDERED: fentaNYL PF VIAL 100 MCG/2 ML VIAL IV PRN (22:15)
[2018-06-11] MEDS ORDERED: ACETAMINOPHEN 325 MG TABLET. PO PRN (22:15)
[2018-06-11] MEDS ORDERED: NITROGLYCERIN SUBLINGUAL 0.4 MG BOTTLE OF 25. SL PRN (22:15)
[2018-06-11] MEDS ORDERED: LISINOPRIL 20 MG TABLET PO ONE (23:00)
[2018-06-11] MEDS ORDERED: LISI-334 PO (23:04)
[2018-06-11] MEDS ORDERED: CARV6.25 PO (23:04)
[2018-06-11 23:12] VITALS: BP 143/84
[2018-06-12] VITALS (14 sets, daily range): BP systolic 124–149; BP diastolic 60–84
[2018-06-12] MEDS: IV NORMAL SALINE 1000ML BAG 1,000 ML IV SCH ×2 (00:19→15:41)
[2018-06-12 05:37] LABS: CALCIUM 8.7 mg/dL (8.5-10.1); GFR 76.5
[2018-06-12 05:42] LABS: CHOLESTEROL/HDL RATIO 6.6
--- NOTE | 2018-06-12 05:44 | EKG ---
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
--- NOTE | 2018-06-12 07:04 | EKG ---
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
[2018-06-12] MEDS: LISINOPRIL 20 MG TABLET PO SCH (08:01)
[2018-06-12] MEDS: TICAGRELOR 90 MG TABLET. PO SCH ×2 (08:01→21:29)
[2018-06-12] MEDS: ASPIRIN ENTERIC COATED 81 MG TABLET.DR. PO SCH (08:01)
[2018-06-12] MEDS: CARVEDILOL 6.25 MG TABLET. PO SCH ×2 (08:02→17:44)
[2018-06-12] MEDS ORDERED: METOPROLOL TART IMMED RELEASE 25 MG TABLET. PO SCH (09:00)
--- NOTE | 2018-06-12 10:17 | EKG ---
[facility] [address] [place] [address] Test Date: 2018-06-12 Test Time: 10:10:48 Pat Name: OSCAR DALEY Department: Room: 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
--- NOTE | 2018-06-12 10:33 | CARD ---
MR#: [id number] Date of Study: 06/11/2018 Ordering Physician: PANKAJ BLACKMON, Referring Physician: Richard BLUM: Mina Benoit, RT (R) APPROVED REPORT Procedures Left heart catheterization Selective coronary angiogram Drug-eluting stent placement to the LAD. The patient is a 58-year-old male with known coronary artery disease. He developed chest pain and was brought to the emergency room after approximately an hour and a half of chest pain. EKG showed anter ior ST segment elevations that were increased over the patient's original ST elevations by EMS.THe pa emilynt was treated with heparin, aspirin and morphine with continued pain. In this setting emergency c atheterization was recommended. Risks and benefits were discussed. The patient agreed to proceed with cardiac catheterization. After informed consent was obtained the patient was brought to the heart catheterization lab. The are a of the right femoral artery was prepared the usual manner with Betadine, sterile draping and local anesthetic. An 18-gauge needle was used to enter the right femoral artery, a wire placed and a 6 Fren ch sheath placed over the wire. A 6 Sudanese JR4 diagnostic catheter was advanced to the ascending aort a and used to engage the right coronary artery and sequential injections in various views were obtain ed. A 6 Sudanese JL4 guide was then advanced the ascending aorta and used to engage the left coronary s ystem. Sequential injections in various views were obtained. At this point a greater than 90% hazy mi d LAD lesion was identified. We proceeded to revascularize the vessel. Angiomax as per protocol was administered. A PT choice wire was used to cross the lesion. Initial dil atation was with a Euphora balloon 2.5 x 15 with two inflations at 8 rosangela for 20 seconds. A Xience Alp ine drug-eluting stent 3.0 x 23 was then deployed at 15 rosangela for 15 seconds. Residual lesion was 0%. A t this time a 80% obtuse marginal lesion was also identified in the proximal portion of a previously placed stent. However in the setting of an ST elevated myocardial infarction revascularization was d eferred at this time. A pigtail catheter was advanced into ascending aorta and then the left ventricl e. Pressures were obtained. No left ventriculogram was performed. Pullback pressures were measured. T he catheter was removed from the patient. The patient continued be significantly hypertension. The sh eath was sutured into place. The patient was moved to the ICU with no chest pain. Findings Hemodynamics. LV pressure of 168/5,16 Aortic root pressure 166/94. Coronaries. Left main. The left main had a distal 10% taper. Left anterior descending. The LAD was a moderate size vessel. It had a osteal 40% lesion. The first d iagonal vessel had a patent stent present. In the mid to distal LAD there was a patent stent present. The proximal midportion had a hazy greater than 90% lesion. Left circumflex. The left circumflex is a moderate size vessel. Distally it had a 25% lesion. Obtuse marginal 1 was previously stented with a proximal 80% in-stent lesion. Right coronary artery. The right coronary artery had a proximal to mid area that appeared to be a chr onic occlusion with distal collateralization via collaterals. <Conclusion> Severe single-vessel coronary artery disease with a greater than 90% hazy lesion in the mid LAD. Patent stents in the mid to distal LAD and first diagonal branch. 80% lesion in an obtuse marginal 1 stent. Right coronary artery with a chronic occlusion with distal collateralization. Successful drug-eluting stent placement to the mid LAD lesion decreasing a greater than 90% lesion to 0%. Signed by : Pankaj Blackmon MD Electronically Approved : 06/12/2018 10:32:40
--- NOTE | 2018-06-12 10:48 | PDOC ---
PROGRESS NOTES Subjective Subjective Patient seen and examined No chest pain. Objective Objective Vital Signs Date Time Temp Pulse Resp B/P (MAP) Pulse Ox O2 Delivery O2 Flow Rate FiO2 06/12/18 10:20 18 99 Room Air 06/12/18 10:00 63 136/84 (101) 06/12/18 05:00 98.0 98.0 06/11/18 20:53 2.0 Intake and Output 06/12/18 07:00 Intake Total 640 ml Output Total 650 ml Balance -10 ml Intake Oral 640 ml Output Urine Total 650 ml Physical Exam Abdomen: Normal bowel sounds Heart: Regular rate General: No acute distress Lungs: Clear to auscultation Assessment Assessment Problems Medical Problems: (1) STEMI (ST elevation myocardial infarction) Status: Acute 1. STEMI. Last post stent to the LAD. Patient's pain has resolved. Troponin peaked at only 1.9. We'll continue present medications. Staged stenting to the obtuse marginal 1 vessel tomorrow. Discussed with the patient. ECHO pare pending. 2. Hypertension. Patient's blood pressure is significantly improved today. Will continue oral medications. 3. History of Hyperlipidemia. LDL of 129, HDL of 29. Continue statins 4. Reported diet controlled diabetes. As per the primary service. 5. Tobacco abuse. One pack per day. Discussed with the patient. Comment Review of Relevant I have reviewed the following items isaac (where applicable) has been applied. Labs Laboratory Tests Test 06/11/18 20:20 06/12/18 00:50 06/12/18 04:00 White Blood Count 10.5 x10^3/uL (4.0-11.0) Red Blood Count 5.32 x10^6/uL (4.30-5.70) Hemoglobin 16.7 g/dL (13.0-17.5) Hematocrit 47.3 % (39.0-53.0) Mean Corpuscular Volume 89 fL (79-100) Mean Corpuscular Hemoglobin 31 pg (25-35) Mean Corpuscular Hemoglobin Concent 35 g/dL (31-37) Red Cell Distribution Width 12.6 % (11.5-14.5) Platelet Count 249 x10^3/uL (140-400) Neutrophils (%) (Auto) 54 % (31-73) Lymphocytes (%) (Auto) 29 % (24-48) Monocytes (%) (Auto) 11 % (0-9) Eosinophils (%) (Auto) 3 % (0-3) Basophils (%) (Auto) 2 % (0-3) Neutrophils # (Auto) 5.7 x10^3uL (1.8-7.7) Lymphocytes # (Auto) 3.0 x10^3/uL (1.0-4.8) Monocytes # (Auto) 1.2 x10^3/uL (0.0-1.1) Eosinophils # (Auto) 0.4 x10^3/uL (0.0-0.7) Basophils # (Auto) 0.2 x10^3/uL (0.0-0.2) Prothrombin Time 12.9 SEC (11.7-14.0) Prothromb Time International Ratio 1.0 (0.8-1.1) Sodium Level 140 mmol/L (136-145) 140 mmol/L (136-145) Potassium Level 4.2 mmol/L (3.5-5.1) 4.0 mmol/L (3.5-5.1) Chloride Level 102 mmol/L (98-107) 105 mmol/L (98-107) Carbon Dioxide Level 27 mmol/L (21-32) 25 mmol/L (21-32) Anion Gap 11 (6-14) 10 (6-14) Blood Urea Nitrogen 13 mg/dL (8-26) 13 mg/dL (8-26) Creatinine 1.2 mg/dL (0.7-1.3) 1.0 mg/dL (0.7-1.3) Estimated GFR (Cockcroft-Gault) 62.0 76.5 BUN/Creatinine Ratio 11 (6-20) Glucose Level 132 mg/dL (70-99) 107 mg/dL (70-99) Calcium Level 9.7 mg/dL (8.5-10.1) 8.7 mg/dL (8.5-10.1) Magnesium Level 2.0 mg/dL (1.8-2.4) Total Bilirubin 0.4 mg/dL (0.2-1.0) Aspartate Amino Transf (AST/SGOT) 23 U/L (15-37) Alanine Aminotransferase (ALT/SGPT) 31 U/L (16-63) Alkaline Phosphatase 84 U/L (46-116) Creatine Kinase 175 U/L (39-308) Creatine Kinase MB (Mass) 1.7 ng/mL (0.0-3.6) Creatine Kinase MB Relative Index 1.0 % (0-4) Troponin I Quantitative < 0.017 ng/mL (0.000-0.055) 1.109 ng/mL (0.000-0.055) 1.921 ng/mL (0.000-0.055) YF-Mjy-U-Type Natriuretic Peptide 201 pg/mL (0-124) Total Protein 7.9 g/dL (6.4-8.2) Albumin 3.9 g/dL (3.4-5.0) Albumin/Globulin Ratio 1.0 (1.0-1.7) Lipase 147 U/L (73-393) Triglycerides Level 163 mg/dL (0-150) Cholesterol Level 191 mg/dL (0-200) LDL Cholesterol, Calculated 129 mg/dL (0-100) VLDL Cholesterol, Calculated 33 mg/dL (0-40) Non-HDL Cholesterol Calculated 162 mg/dL (0-129) HDL Cholesterol 29 mg/dL (40-60) Cholesterol/HDL Ratio 6.6 Laboratory Tests Test 06/11/18 20:20 06/12/18 00:50 06/12/18 04:00 White Blood Count 10.5 x10^3/uL (4.0-11.0) Red Blood Count 5.32 x10^6/uL (4.30-5.70) Hemoglobin 16.7 g/dL (13.0-17.5) Hematocrit 47.3 % (39.0-53.0) Mean Corpuscular Volume 89 fL (79-100) Mean Corpuscular Hemoglobin 31 pg (25-35) Mean Corpuscular Hemoglobin Concent 35 g/dL (31-37) Red Cell Distribution Width 12.6 % (11.5-14.5) Platelet Count 249 x10^3/uL (140-400) Neutrophils (%) (Auto) 54 % (31-73) Lymphocytes (%) (Auto) 29 % (24-48) Monocytes (%) (Auto) 11 % (0-9) Eosinophils (%) (Auto) 3 % (0-3) Basophils (%) (Auto) 2 % (0-3) Neutrophils # (Auto) 5.7 x10^3uL (1.8-7.7) Lymphocytes # (Auto) 3.0 x10^3/uL (1.0-4.8) Monocytes # (Auto) 1.2 x10^3/uL (0.0-1.1) Eosinophils # (Auto) 0.4 x10^3/uL (0.0-0.7) Basophils # (Auto) 0.2 x10^3/uL (0.0-0.2) Prothrombin Time 12.9 SEC (11.7-14.0) Prothromb Time International Ratio 1.0 (0.8-1.1) Sodium Level 140 mmol/L (136-145) 140 mmol/L (136-145) Potassium Level 4.2 mmol/L (3.5-5.1) 4.0 mmol/L (3.5-5.1) Chloride Level 102 mmol/L (98-107) 105 mmol/L (98-107) Carbon Dioxide Level 27 mmol/L (21-32) 25 mmol/L (21-32) Anion Gap 11 (6-14) 10 (6-14) Blood Urea Nitrogen 13 mg/dL (8-26) 13 mg/dL (8-26) Creatinine 1.2 mg/dL (0.7-1.3) 1.0 mg/dL (0.7-1.3) Estimated GFR (Cockcroft-Gault) 62.0 76.5 BUN/Creatinine Ratio 11 (6-20) Glucose Level 132 mg/dL (70-99) 107 mg/dL (70-99) Calcium Level 9.7 mg/dL (8.5-10.1) 8.7 mg/dL (8.5-10.1) Magnesium Level 2.0 mg/dL (1.8-2.4) Total Bilirubin 0.4 mg/dL (0.2-1.0) Aspartate Amino Transf (AST/SGOT) 23 U/L (15-37) Alanine Aminotransferase (ALT/SGPT) 31 U/L (16-63) Alkaline Phosphatase 84 U/L (46-116) Creatine Kinase 175 U/L (39-308) Creatine Kinase MB (Mass) 1.7 ng/mL (0.0-3.6) Creatine Kinase MB Relative Index 1.0 % (0-4) Troponin I Quantitative < 0.017 ng/mL (0.000-0.055) 1.109 ng/mL (0.000-0.055) 1.921 ng/mL (0.000-0.055) PT-Jai-Y-Type Natriuretic Peptide 201 pg/mL (0-124) Total Protein 7.9 g/dL (6.4-8.2) Albumin 3.9 g/dL (3.4-5.0) Albumin/Globulin Ratio 1.0 (1.0-1.7) Lipase 147 U/L (73-393) Triglycerides Level 163 mg/dL (0-150) Cholesterol Level 191 mg/dL (0-200) LDL Cholesterol, Calculated 129 mg/dL (0-100) VLDL Cholesterol, Calculated 33 mg/dL (0-40) Non-HDL Cholesterol Calculated 162 mg/dL (0-129) HDL Cholesterol 29 mg/dL (40-60) Cholesterol/HDL Ratio 6.6 Medications Current Medications Heparin Sodium (Porcine) (Heparin Sodium) 4,000 unit 1X ONCE IV Last administered on 06/11/18at 20:30; Start 06/11/18 at 20:30; Stop 06/11/18 at 20:31 ; Status DC Nitroglycerin/ Dextrose 250 ml @ 0 mls/hr 1X ONCE IV Last administered on 06/11at 20:32; Start 06/11/18 at 20:30; Stop 06/11/18 at 20:31; Status DC Fentanyl Citrate (Fentanyl 2ml Vial) 50 mcg 1X ONCE IV Last administered on at 20:44; Start 06/11/18 at 20:45; Stop 06/11/18 at 20:46; Status DC Sodium Chloride 1,000 ml @ 1,000 mls/hr 1X ONCE IV Last administered on at 20:44; Start 06/11/18 at 20:45; Stop 06/11/18 at 22:04; Status DC Fentanyl Citrate (Fentanyl 2ml Vial) 100 mcg STK-MED ONCE .ROUTE ; Start at 20:51; Stop 06/11/18 at 20:52; Status DC Midazolam HCl (Versed) 2 mg STK-MED ONCE .ROUTE ; Start 06/11/18 at 20:51; Stop 06/11/18 at 20:52; Status DC Iodixanol (Visipaque 320) 100 ml STK-MED ONCE .ROUTE ; Start 06/11/18 at 20:52; Stop 06/11/18 at 20:53; Status DC Lidocaine HCl (Xylocaine 1% Pf 30ml Vial) 30 ml STK-MED ONCE .ROUTE ; Start at 20:52; Stop 06/11/18 at 20:53; Status DC Heparin Sodium/ Sodium Chloride 1,000 ml @ As Directed STK-MED ONCE .ROUTE ; Start 06/11/18 at 20:52; Stop 06/11/18 at 20:53; Status DC Bivalirudin (Angiomax) 250 mg STK-MED ONCE IV ; Start 06/11/18 at 21:21; Stop at 21:22; Status DC Heparin Sodium/ Sodium Chloride 500 ml @ As Directed STK-MED ONCE .ROUTE ; Start 06/11/18 at 21:23; Stop 06/11/18 at 21:24; Status DC Iodixanol (Visipaque 320) 100 ml STK-MED ONCE .ROUTE ; Start 06/11/18 at 21:24; Stop 06/11/18 at 21:25; Status DC Heparin Sodium/ Sodium Chloride (HEPARIN for ARTERIAL LINE FLUSH) 1,000 unit 1X ONCE IART Last administered on 06/11/18at 21:53; Start 06/11/18 at 22:00; Stop 06/11/18 at 22:01; Status DC Heparin Sodium/ Sodium Chloride (HEPARIN for ARTERIAL LINE FLUSH) 1,000 unit 1X ONCE IART Last administered on 06/11/18at 21:53; Start 06/11/18 at 22:00; Stop 06/11/18 at 22:01; Status DC Midazolam HCl (Versed) 2 mg 1X ONCE IV Last administered on 06/11/18at 21:54; Start 06/11/18 at 22:00; Stop 06/11/18 at 22:01; Status DC Fentanyl Citrate (Fentanyl 2ml Vial) 100 mcg 1X ONCE IV Last administered on at 21:55; Start 06/11/18 at 22:00; Stop 06/11/18 at 22:01; Status DC Iodixanol (Visipaque 320) 100 ml 1X ONCE IART Last administered on 06/11/18at 21:52; Start 06/11/18 at 22:00; Stop 06/11/18 at 22:01; Status DC Bivalirudin (Angiomax) 250 mg 1X ONCE IV Last administered on 06/11/18at 21:54 ; Start 06/11/18 at 22:00; Stop 06/11/18 at 22:01; Status DC Lidocaine HCl (Xylocaine 1% Pf 30ml Vial) 30 ml 1X ONCE INJ Last administered on 06/11/18at 21:55; Start 06/11/18 at 22:00; Stop 06/11/18 at 22:01; Status DC Ticagrelor (Brilinta) 90 mg STK-MED ONCE .ROUTE ; Start 06/11/18 at 21:40; Stop 06/11/18 at 21:41; Status DC Ticagrelor (Brilinta) 180 mg 1X ONCE PO Last administered on 06/11/18at 21:55; Start 06/11/18 at 22:00; Stop 06/11/18 at 22:01; Status DC Nitroglycerin/ Dextrose 250 ml @ 0 mls/hr 1X ONCE IV Last administered on 06/11at 21:56; Start 06/11/18 at 22:00; Stop 06/11/18 at 22:01; Status DC Heparin Sodium/ Sodium Chloride 500 ml @ As Directed STK-MED ONCE .ROUTE ; Start 06/11/18 at 21:53; Stop 06/11/18 at 21:54; Status DC Sodium Chloride (Normal Saline Flush) 3 ml QSHIFT PRN IV AFTER MEDS AND BLOOD DRAWS; Start 06/11/18 at 22:15 Sodium Chloride 1,000 ml @ 60 mls/hr [id number] IV Last administered on at 00:19; Start 06/11/18 at 22:03 Aspirin (Ecotrin) 81 mg [id number] PO Last administered on 06/12/18at 08:01; Start 06/12/18 at 08:00 Metoprolol Tartrate (Lopressor) 12.5 mg BID PO ; Start 06/12/18 at 09:00; Stop 06/12/18 at 09:00; Status DC Lisinopril (Prinivil) 10 mg DAILY PO ; Start 06/11/18 at 22:15; Stop 06/11/18 at 22:21; Status DC Atorvastatin Calcium (Lipitor) 20 mg QHS PO ; Start 06/12/18 at 21:00 Acetaminophen (Tylenol) 650 mg PRN Q6HRS PRN PO MILD PAIN / TEMP; Start at 22:15 Fentanyl Citrate (Fentanyl 2ml Vial) 50 mcg PRN Q1HR PRN IV MODERATE OR SEVERE PAIN Last administered on 06/12/18at 09:50; Start 06/11/18 at 22:15 Nitroglycerin (Nitrostat) 0.4 mg PRN Q5MIN PRN SL CHEST PAIN; Start 06/11/18 at 22:15 Amiodarone HCl 150 mg/Dextrose 103 ml @ 600 mls/hr 1X PRN PRN IV FOR VENTRICULAR TACHYCARDIA; Start 06/11/18 at 22:15 Lidocaine HCl (Lidocaine HCl 2% Abboject) 100 mg 1X PRN PRN IV FOR VENTRICULAR TACHYCARDIA; Start 06/11/18 at 22:15 Atropine Sulfate (ATROPINE 0.5mg SYRINGE) 0.5 mg PRN 1X PRN IV BRADYCARDIA; Start 06/11/18 at 22:15 Lisinopril (Prinivil) 20 mg DAILY PO Last administered on 06/12/18at 08:01; Start 06/12/18 at 09:00 Ticagrelor (Brilinta) 90 mg BID PO Last administered on 06/12/18at 08:01; Start 06/12/18 at 09:00 Carvedilol (Coreg) 6.25 mg BIDWMEALS PO Last administered on 06/12/18at 08:02; Start 06/12/18 at 08:00 Nitroglycerin/ Dextrose 250 ml @ 0 mls/hr 1X ONCE IV Last administered on 06/12at 00:20; Start 06/11/18 at 23:00; Stop 06/11/18 at 23:01; Status DC Lisinopril (Prinivil) 20 mg 1X ONCE PO Last administered on 06/12/18at 00:19; Start 06/11/18 at 23:00; Stop 06/11/18 at 23:01; Status DC Active Scripts Active Reported Lisinopril 20 Mg Tablet 1 Tab PO DAILY Coreg (Carvedilol) 6.25 Mg Tablet 1 Tab PO BID Aspirin 325 Mg Tablet 1 Tab PO DAILY Cyclobenzaprine Hcl 10 Mg Tablet 1 Tab PO TID PRN NITROGLYCERIN SubLingual (Nitroglycerin) 0.4 Mg Tab.subl 0.4 Mg SL PRN Q5MIN PRN Vitals/I & O Vital Sign - Last 24 Hours 06/11/18 06/11/18 06/11/18 06/11/18 20:15 20:21 20:23 20:26 Temp 98.2 98.2 Pulse 83 81 90 91 Resp 20 18 18 18 B/P (MAP) 199/113 (141) 189/108 (135) 199/117 (144) 203/116 (145) Pulse Ox 100 100 100 100 O2 Delivery Room Air Nasal Cannula O2 Flow Rate 2.0 2.0 2.0 06/11/18 06/11/18 06/11/18 06/11/18 20:28 20:33 20:38 20:43 Pulse 94 87 81 75 Resp 18 B/P (MAP) 201/117 (145) 206/121 (149) 184/117 (139) 179/110 (133) Pulse Ox 100 100 100 100 O2 Delivery Nasal Cannula Nasal Cannula O2 Flow Rate 2.0 2.0 2.0 2.0 06/11/18 06/11/18 06/11/18 06/11/18 20:47 20:53 21:55 23:12 Temp 98.1 98.1 Pulse 66 77 82 Resp 16 B/P (MAP) 167/92 (117) 183/91 (121) 143/84 (103) Pulse Ox 100 100 96 98 O2 Delivery Nasal Cannula Room Air Room Air O2 Flow Rate 2.0 2.0 06/12/18 06/12/18 06/12/18 06/12/18 00:00 00:19 01:00 02:00 Temp 98.9 98.9 Pulse 74 84 75 80 Resp 16 16 16 B/P (MAP) 124/79 (94) 122/78 138/75 (96) 142/79 (100) Pulse Ox 98 98 98 O2 Delivery Room Air Room Air Room Air 06/12/18 06/12/18 06/12/18 06/12/18 03:00 04:00 05:00 06:00 Temp 98.0 98.0 Pulse 75 75 74 78 Resp 16 16 16 16 B/P (MAP) 131/76 (94) 124/79 (94) 124/79 (94) 149/82 (104) Pulse Ox 98 99 99 99 O2 Delivery Room Air Room Air Room Air Room Air 06/12/18 06/12/18 06/12/18 06/12/18 07:00 08:01 08:02 09:00 Pulse 66 85 79 63 Resp 16 16 B/P (MAP) 146/80 (102) 122/74 124/76 138/78 (98) Pulse Ox 97 99 O2 Delivery Room Air Room Air 06/12/18 06/12/18 06/12/18 09:50 10:00 10:20 Pulse 63 Resp 18 18 18 B/P (MAP) 136/84 (101) Pulse Ox 98 99 99 O2 Delivery Nasal Cannula Room Air Room Air Intake and Output 06/11/18 06/11/18 06/12/18 15:00 23:00 07:00 Intake Total 640 ml Output Total 650 ml Balance -10 ml PANKAJ BLACKMON MD Jun 12, 2018 10:48
--- NOTE | 2018-06-12 13:28 | HP ---
ADMIT DATE: 06/11/2018 CHIEF COMPLAINT: Chest pain. HISTORY OF PRESENT ILLNESS: The patient is a pleasant 58-year-old male who presented to the ER last night with chest pain. It was rated at 10/10. It was associated with vomiting that had been occurring for several days off and on, but got really bad and he came to the ER for evaluation. While in the ER, he was noted to have a bump in his troponin. His EKG was highly abnormal. He was taken to the [facility]. He got a new coronary stent. He is now being examined in the ICU. The plan is to take him back to the [facility] for another stent tomorrow. PAST MEDICAL HISTORY: CAD, diabetes, hypertension, spinal stenosis, previous cardiac stents, right hand surgeries, tobacco abuse, marijuana use. ALLERGIES: PENICILLIN. FAMILY HISTORY: Coronary artery disease. SOCIAL HISTORY: He drinks socially, smokes, no drugs. 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 MEDICATIONS: Reviewed, please refer to the MRAD. REVIEW OF SYSTEMS: GENERAL: No history of weight change, weakness or fevers. SKIN: No bruising, hair changes or rashes. EYES: No blurred, double or loss of vision. NOSE AND THROAT: No history of nosebleeds, hoarseness or sore throat. HEART: No history of palpitations, chest pain or shortness of breath on exertion. LUNGS: Denies cough, hemoptysis, wheezing or shortness of breath. GASTROINTESTINAL: Denies changes in appetite, nausea, vomiting, diarrhea or constipation. GENITOURINARY: No history of frequency, urgency, hesitancy or nocturia. NEUROLOGIC: Denies history of numbness, tingling, tremor or weakness. PSYCHIATRIC: No history of panic, anxiety or depression. ENDOCRINE: No history of heat or cold intolerance, polyuria or polydipsia. EXTREMITIES: Denies muscle weakness, joint pain, pain on walking or stiffness. PHYSICAL EXAMINATION: VITAL SIGNS: Temperature afebrile, pulse 74, respirations 18, blood pressure 134/90. GENERAL: He is alert, cooperative. His daughter is present. She is a good support for him. HEART: Normal S1, S2. LUNGS: Clear. ABDOMEN: Soft. EXTREMITIES: No edema. The right groin has a clean, dry and intact dressing. ENDOCRINE: No thyromegaly. LYMPHATICS: No cervical nodes. HEMATOPOIETIC: No bruising. LABORATORY DATA: Troponin is 1.92. Hematology is normal. ASSESSMENT AND PLAN: Acute myocardial infarction with status post emergent cardiac catheterization with a stent placement. We certainly agree and appreciate Dr. Byers's rapid intervention. For now, ICU monitoring, continue serial enzymes, IV heparin. He is going back to the [facility] tomorrow. Recheck his labs, cardiac protocol including statins, beta blockers, TC inhibitors, antiplatelet drugs plus or minus diuretics. Long-term prognosis is guarded. GRADY GUDINO DO DR: SARAI/tan JOB#: [id number] / [id number]
[2018-06-12] MEDS: ATORVASTATIN CALCIUM 20 MG TABLET PO SCH (21:29)
[2018-06-13] VITALS (17 sets, daily range): BP systolic 114–171; BP diastolic 65–96
[2018-06-13] MEDS: IV NORMAL SALINE 1000ML BAG 1,000 ML IV SCH (06:21)
[2018-06-13] MEDS ORDERED: IV NORMAL SALINE 1000ML BAG 1,000 ML IV SCH ×2 (08:00→14:00)
[2018-06-13] MEDS: LISINOPRIL 20 MG TABLET PO SCH (09:16)
[2018-06-13] MEDS: CARVEDILOL 6.25 MG TABLET. PO SCH ×2 (09:16→17:13)
[2018-06-13] MEDS: TICAGRELOR 90 MG TABLET. PO SCH ×2 (09:16→21:15)
[2018-06-13] MEDS: ASPIRIN ENTERIC COATED 81 MG TABLET.DR. PO SCH (09:17)
[2018-06-13 09:43] LABS: CALCIUM 8.5 mg/dL (8.5-10.1); GFR 76.5
[2018-06-13] MEDS ORDERED: LIDOCAINE 1% PF 30 ML VIAL. ONE (10:26)
[2018-06-13] MEDS ORDERED: IOHEXOL 300 MG/ML 100ML VIAL. ONE (10:26)
[2018-06-13] MEDS ORDERED: LIDOCAINE 1% PF 30 ML VIAL. INJ ONE (11:00)
[2018-06-13] MEDS ORDERED: MIDAZOLAM HCL/PF 2 MG/2 ML VIAL. IV ONE (11:00)
[2018-06-13] MEDS ORDERED: IOHEXOL 300 MG/ML 100ML VIAL. IART ONE (11:00)
[2018-06-13] MEDS ORDERED: fentaNYL PF VIAL 100 MCG/2 ML VIAL IV ONE (11:00)
[2018-06-13] MEDS ORDERED: fentaNYL PF VIAL 100 MCG/2 ML VIAL ONE (11:24)
[2018-06-13] MEDS ORDERED: MIDAZOLAM HCL/PF 2 MG/2 ML VIAL. ONE ×2 (11:25→11:41)
--- NOTE | 2018-06-13 11:26 | PDOC ---
MODERATE SEDATION ASSESSMENT RISKS/ALTERNATIVES Risks/Alternatives Risks and alternatives of this type of sedation and procedure discussed with: RISK/ALTERNATIVES: Patient H & P ON CHART H & P H & P on chart and reviewed for co-morbid conditions and appropriate labs. H&P ON CHART: Yes STATUS PREG STATUS ASSESSED: N/A MEDS/ALLERGIES REVIEWED Meds/Allergies Reviewed Medications and Allergies including time and route of recently administered narcotics and sedatives. MEDS/ALLERGIES REVIEWED: Yes ASA RATING ASA RATING: II AIRWAY ASSESSMENT Airway Assessment Airway patency, oral function limitations, presence of caps, crowns, dentures, partials, and ability to extend neck assessed. AIRWAY ASSESSMENT: Yes MALLAMPATI SCORE MALLAMPATI SCORE: II PRE-SEDATION ASSESSMENT PRE-SEDATION ASSESSMENT: Yes PANKAJ BLACKMON MD Jun 13, 2018 11:26
[2018-06-13] MEDS ORDERED: HEPARIN for IV BOLUS 10,000 UNIT/10 ML VIAL. ONE (11:42)
[2018-06-13] MEDS ORDERED: HEPARIN for IV BOLUS 10,000 UNIT/10 ML VIAL. IV ONE (11:45)
[2018-06-13] MEDS ORDERED: NICOTINE 14MG PATCH. TD PRN (11:45)
--- NOTE | 2018-06-13 11:51 | PDOC ---
PROGRESS NOTES Chief Complaint Chief Complaint STEMI CAD diabetes hypertension spinal stenosis previous cardiac stents right hand surgeries tobacco abuse marijuana use History of Present Illness History of Present Illness pt seen and examine DW nurse VSS pt anxious nicotine withdrawl family at bedside Vitals Vitals Vital Signs Date Time Temp Pulse Resp B/P (MAP) Pulse Ox O2 Delivery O2 Flow Rate FiO2 06/13/18 10:45 65 16 143/81 (101) 95 Room Air 06/13/18 06:25 99.1 99.1 Physical Exam General: Alert, No acute distress Heart: Regular rate, No murmurs Lungs: Clear Abdomen: Normal bowel sounds Extremities: No clubbing, No cyanosis Skin: No rashes Labs LABS Laboratory Tests Test 06/12/18 21:30 06/13/18 06:57 06/13/18 09:00 Glucose (Fingerstick) 102 mg/dL (70-99) 124 mg/dL (70-99) Sodium Level 140 mmol/L (136-145) Potassium Level 4.0 mmol/L (3.5-5.1) Chloride Level 106 mmol/L (98-107) Carbon Dioxide Level 25 mmol/L (21-32) Anion Gap 9 (6-14) Blood Urea Nitrogen 11 mg/dL (8-26) Creatinine 1.0 mg/dL (0.7-1.3) Estimated GFR (Cockcroft-Gault) 76.5 Glucose Level 112 mg/dL (70-99) Calcium Level 8.5 mg/dL (8.5-10.1) Review of Systems Review of Systems denies fever anxious c/p Assessment and Plan Assessmemt and Plan Problems Medical Problems: (1) STEMI (ST elevation myocardial infarction) Status: Acute CAD diabetes hypertension spinal stenosis previous cardiac stents right hand surgeries tobacco abuse marijuana use 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 Labs Laboratory Tests Test 06/11/18 20:20 06/11/18 23:30 06/12/18 00:50 06/12/18 04:00 White Blood Count 10.5 x10^3/uL (4.0-11.0) Red Blood Count 5.32 x10^6/uL (4.30-5.70) Hemoglobin 16.7 g/dL (13.0-17.5) Hematocrit 47.3 % (39.0-53.0) Mean Corpuscular Volume 89 fL (79-100) Mean Corpuscular Hemoglobin 31 pg (25-35) Mean Corpuscular Hemoglobin Concent 35 g/dL (31-37) Red Cell Distribution Width 12.6 % (11.5-14.5) Platelet Count 249 x10^3/uL (140-400) Neutrophils (%) (Auto) 54 % (31-73) Lymphocytes (%) (Auto) 29 % (24-48) Monocytes (%) (Auto) 11 % (0-9) Eosinophils (%) (Auto) 3 % (0-3) Basophils (%) (Auto) 2 % (0-3) Neutrophils # (Auto) 5.7 x10^3uL (1.8-7.7) Lymphocytes # (Auto) 3.0 x10^3/uL (1.0-4.8) Monocytes # (Auto) 1.2 x10^3/uL (0.0-1.1) Eosinophils # (Auto) 0.4 x10^3/uL (0.0-0.7) Basophils # (Auto) 0.2 x10^3/uL (0.0-0.2) Prothrombin Time 12.9 SEC (11.7-14.0) Prothromb Time International Ratio 1.0 (0.8-1.1) Sodium Level 140 mmol/L (136-145) 140 mmol/L (136-145) Potassium Level 4.2 mmol/L (3.5-5.1) 4.0 mmol/L (3.5-5.1) Chloride Level 102 mmol/L (98-107) 105 mmol/L (98-107) Carbon Dioxide Level 27 mmol/L (21-32) 25 mmol/L (21-32) Anion Gap 11 (6-14) 10 (6-14) Blood Urea Nitrogen 13 mg/dL (8-26) 13 mg/dL (8-26) Creatinine 1.2 mg/dL (0.7-1.3) 1.0 mg/dL (0.7-1.3) Estimated GFR (Cockcroft-Gault) 62.0 76.5 BUN/Creatinine Ratio 11 (6-20) Glucose Level 132 mg/dL (70-99) 107 mg/dL (70-99) Calcium Level 9.7 mg/dL (8.5-10.1) 8.7 mg/dL (8.5-10.1) Magnesium Level 2.0 mg/dL (1.8-2.4) Total Bilirubin 0.4 mg/dL (0.2-1.0) Aspartate Amino Transf (AST/SGOT) 23 U/L (15-37) Alanine Aminotransferase (ALT/SGPT) 31 U/L (16-63) Alkaline Phosphatase 84 U/L (46-116) Creatine Kinase 175 U/L (39-308) Creatine Kinase MB (Mass) 1.7 ng/mL (0.0-3.6) Creatine Kinase MB Relative Index 1.0 % (0-4) Troponin I Quantitative < 0.017 ng/mL (0.000-0.055) 1.109 ng/mL (0.000-0.055) 1.921 ng/mL (0.000-0.055) TC-Mmb-O-Type Natriuretic Peptide 201 pg/mL (0-124) Total Protein 7.9 g/dL (6.4-8.2) Albumin 3.9 g/dL (3.4-5.0) Albumin/Globulin Ratio 1.0 (1.0-1.7) Lipase 147 U/L (73-393) Nasal Screen MRSA (PCR) Negative (Negative) Triglycerides Level 163 mg/dL (0-150) Cholesterol Level 191 mg/dL (0-200) LDL Cholesterol, Calculated 129 mg/dL (0-100) VLDL Cholesterol, Calculated 33 mg/dL (0-40) Non-HDL Cholesterol Calculated 162 mg/dL (0-129) HDL Cholesterol 29 mg/dL (40-60) Cholesterol/HDL Ratio 6.6 Test 06/12/18 21:30 06/13/18 06:57 06/13/18 09:00 Glucose (Fingerstick) 102 mg/dL (70-99) 124 mg/dL (70-99) Sodium Level 140 mmol/L (136-145) Potassium Level 4.0 mmol/L (3.5-5.1) Chloride Level 106 mmol/L (98-107) Carbon Dioxide Level 25 mmol/L (21-32) Anion Gap 9 (6-14) Blood Urea Nitrogen 11 mg/dL (8-26) Creatinine 1.0 mg/dL (0.7-1.3) Estimated GFR (Cockcroft-Gault) 76.5 Glucose Level 112 mg/dL (70-99) Calcium Level 8.5 mg/dL (8.5-10.1) Laboratory Tests Test 06/12/18 21:30 06/13/18 06:57 06/13/18 09:00 Glucose (Fingerstick) 102 mg/dL (70-99) 124 mg/dL (70-99) Sodium Level 140 mmol/L (136-145) Potassium Level 4.0 mmol/L (3.5-5.1) Chloride Level 106 mmol/L (98-107) Carbon Dioxide Level 25 mmol/L (21-32) Anion Gap 9 (6-14) Blood Urea Nitrogen 11 mg/dL (8-26) Creatinine 1.0 mg/dL (0.7-1.3) Estimated GFR (Cockcroft-Gault) 76.5 Glucose Level 112 mg/dL (70-99) Calcium Level 8.5 mg/dL (8.5-10.1) Medications Current Medications Heparin Sodium (Porcine) (Heparin Sodium) 4,000 unit 1X ONCE IV Last administered on 06/11/18at 20:30; Start 06/11/18 at 20:30; Stop 06/11/18 at 20:31 ; Status DC Nitroglycerin/ Dextrose 250 ml @ 0 mls/hr 1X ONCE IV Last administered on 06/11at 20:32; Start 06/11/18 at 20:30; Stop 06/11/18 at 20:31; Status DC Fentanyl Citrate (Fentanyl 2ml Vial) 50 mcg 1X ONCE IV Last administered on at 20:44; Start 06/11/18 at 20:45; Stop 06/11/18 at 20:46; Status DC Sodium Chloride 1,000 ml @ 1,000 mls/hr 1X ONCE IV Last administered on at 20:44; Start 06/11/18 at 20:45; Stop 06/11/18 at 22:04; Status DC Fentanyl Citrate (Fentanyl 2ml Vial) 100 mcg STK-MED ONCE .ROUTE ; Start at 20:51; Stop 06/11/18 at 20:52; Status DC Midazolam HCl (Versed) 2 mg STK-MED ONCE .ROUTE ; Start 06/11/18 at 20:51; Stop 06/11/18 at 20:52; Status DC Iodixanol (Visipaque 320) 100 ml STK-MED ONCE .ROUTE ; Start 06/11/18 at 20:52; Stop 06/11/18 at 20:53; Status DC Lidocaine HCl (Xylocaine 1% Pf 30ml Vial) 30 ml STK-MED ONCE .ROUTE ; Start at 20:52; Stop 06/11/18 at 20:53; Status DC Heparin Sodium/ Sodium Chloride 1,000 ml @ As Directed STK-MED ONCE .ROUTE ; Start 06/11/18 at 20:52; Stop 06/11/18 at 20:53; Status DC Bivalirudin (Angiomax) 250 mg STK-MED ONCE IV ; Start 06/11/18 at 21:21; Stop at 21:22; Status DC Heparin Sodium/ Sodium Chloride 500 ml @ As Directed STK-MED ONCE .ROUTE ; Start 06/11/18 at 21:23; Stop 06/11/18 at 21:24; Status DC Iodixanol (Visipaque 320) 100 ml STK-MED ONCE .ROUTE ; Start 06/11/18 at 21:24; Stop 06/11/18 at 21:25; Status DC Heparin Sodium/ Sodium Chloride (HEPARIN for ARTERIAL LINE FLUSH) 1,000 unit 1X ONCE IART Last administered on 06/11/18at 21:53; Start 06/11/18 at 22:00; Stop 06/11/18 at 22:01; Status DC Heparin Sodium/ Sodium Chloride (HEPARIN for ARTERIAL LINE FLUSH) 1,000 unit 1X ONCE IART Last administered on 06/11/18at 21:53; Start 06/11/18 at 22:00; Stop 06/11/18 at 22:01; Status DC Midazolam HCl (Versed) 2 mg 1X ONCE IV Last administered on 06/11/18at 21:54; Start 06/11/18 at 22:00; Stop 06/11/18 at 22:01; Status DC Fentanyl Citrate (Fentanyl 2ml Vial) 100 mcg 1X ONCE IV Last administered on at 21:55; Start 06/11/18 at 22:00; Stop 06/11/18 at 22:01; Status DC Iodixanol (Visipaque 320) 100 ml 1X ONCE IART Last administered on 06/11/18at 21:52; Start 06/11/18 at 22:00; Stop 06/11/18 at 22:01; Status DC Bivalirudin (Angiomax) 250 mg 1X ONCE IV Last administered on 06/11/18at 21:54 ; Start 06/11/18 at 22:00; Stop 06/11/18 at 22:01; Status DC Lidocaine HCl (Xylocaine 1% Pf 30ml Vial) 30 ml 1X ONCE INJ Last administered on 06/11/18at 21:55; Start 06/11/18 at 22:00; Stop 06/11/18 at 22:01; Status DC Ticagrelor (Brilinta) 90 mg STK-MED ONCE .ROUTE ; Start 06/11/18 at 21:40; Stop 06/11/18 at 21:41; Status DC Ticagrelor (Brilinta) 180 mg 1X ONCE PO Last administered on 06/11/18at 21:55; Start 06/11/18 at 22:00; Stop 06/11/18 at 22:01; Status DC Nitroglycerin/ Dextrose 250 ml @ 0 mls/hr 1X ONCE IV Last administered on 06/11at 21:56; Start 06/11/18 at 22:00; Stop 06/11/18 at 22:01; Status DC Heparin Sodium/ Sodium Chloride 500 ml @ As Directed STK-MED ONCE .ROUTE ; Start 06/11/18 at 21:53; Stop 06/11/18 at 21:54; Status DC Sodium Chloride (Normal Saline Flush) 3 ml QSHIFT PRN IV AFTER MEDS AND BLOOD DRAWS; Start 06/11/18 at 22:15 Sodium Chloride 1,000 ml @ 60 mls/hr [id number] IV Last administered on at 06:21; Start 06/11/18 at 22:03 Aspirin (Ecotrin) 81 mg [id number] PO Last administered on 06/13/18at 09:17; Start 06/12/18 at 08:00 Metoprolol Tartrate (Lopressor) 12.5 mg BID PO ; Start 06/12/18 at 09:00; Stop 06/12/18 at 09:00; Status DC Lisinopril (Prinivil) 10 mg DAILY PO ; Start 06/11/18 at 22:15; Stop 06/11/18 at 22:21; Status DC Atorvastatin Calcium (Lipitor) 20 mg QHS PO Last administered on 06/12/18at 21: 29; Start 06/12/18 at 21:00 Acetaminophen (Tylenol) 650 mg PRN Q6HRS PRN PO MILD PAIN / TEMP; Start at 22:15 Fentanyl Citrate (Fentanyl 2ml Vial) 50 mcg PRN Q1HR PRN IV MODERATE OR SEVERE PAIN Last administered on 06/12/18at 09:50; Start 06/11/18 at 22:15 Nitroglycerin (Nitrostat) 0.4 mg PRN Q5MIN PRN SL CHEST PAIN; Start 06/11/18 at 22:15 Amiodarone HCl 150 mg/Dextrose 103 ml @ 600 mls/hr 1X PRN PRN IV FOR VENTRICULAR TACHYCARDIA; Start 06/11/18 at 22:15 Lidocaine HCl (Lidocaine HCl 2% Abboject) 100 mg 1X PRN PRN IV FOR VENTRICULAR TACHYCARDIA; Start 06/11/18 at 22:15 Atropine Sulfate (ATROPINE 0.5mg SYRINGE) 0.5 mg PRN 1X PRN IV BRADYCARDIA; Start 06/11/18 at 22:15 Lisinopril (Prinivil) 20 mg DAILY PO Last administered on 06/13/18at 09:16; Start 06/12/18 at 09:00 Ticagrelor (Brilinta) 90 mg BID PO Last administered on 06/13/18at 09:16; Start 06/12/18 at 09:00 Carvedilol (Coreg) 6.25 mg BIDWMEALS PO Last administered on 06/13/18at 09:16; Start 06/12/18 at 08:00 Nitroglycerin/ Dextrose 250 ml @ 0 mls/hr 1X ONCE IV Last administered on 06/12at 00:20; Start 06/11/18 at 23:00; Stop 06/11/18 at 23:01; Status DC Lisinopril (Prinivil) 20 mg 1X ONCE PO Last administered on 06/12/18at 00:19; Start 06/11/18 at 23:00; Stop 06/11/18 at 23:01; Status DC Sodium Chloride 1,000 ml @ 60 mls/hr [id number] IV ; Start 06/13/18 at 08:00 Iohexol (Omnipaque 300 Mg/ml) 100 ml STK-MED ONCE .ROUTE ; Start 06/13/18 at 10: 26; Stop 06/13/18 at 10:27; Status DC Lidocaine HCl (Xylocaine 1% Pf 30ml Vial) 30 ml STK-MED ONCE .ROUTE ; Start at 10:26; Stop 06/13/18 at 10:27; Status DC Heparin Sodium/ Sodium Chloride 500 ml @ As Directed STK-MED ONCE .ROUTE ; Start 06/13/18 at 10:26; Stop 06/13/18 at 10:27; Status DC Heparin Sodium/ Sodium Chloride (HEPARIN for ARTERIAL LINE FLUSH) 1,000 unit 1X ONCE IART ; Start 06/13/18 at 11:00; Stop 06/13/18 at 11:02; Status DC Midazolam HCl (Versed) 2 mg 1X ONCE IV ; Start 06/13/18 at 11:00; Stop at 11:02; Status DC Fentanyl Citrate (Fentanyl 2ml Vial) 100 mcg 1X ONCE IV ; Start 06/13/18 at 11: 00; Stop 06/13/18 at 11:02; Status DC Iohexol (Omnipaque 300 Mg/ml) 100 ml 1X ONCE IART ; Start 06/13/18 at 11:00; Stop 06/13/18 at 11:02; Status DC Lidocaine HCl (Xylocaine 1% Pf 30ml Vial) 30 ml 1X ONCE INJ ; Start 06/13/18 at 11:00; Stop 06/13/18 at 11:02; Status DC Fentanyl Citrate (Fentanyl 2ml Vial) 100 mcg STK-MED ONCE .ROUTE ; Start at 11:24; Stop 06/13/18 at 11:25; Status DC Midazolam HCl (Versed) 2 mg STK-MED ONCE .ROUTE ; Start 06/13/18 at 11:25; Stop 06/13/18 at 11:26; Status DC Nicotine (Nicoderm Cq 14mg) 1 patch PRN DAILY PRN TD SMOKING CESSATION; Start 06/13/18 at 11:45; Status UNV Active Scripts Active Reported Lisinopril 20 Mg Tablet 1 Tab PO DAILY Coreg (Carvedilol) 6.25 Mg Tablet 1 Tab PO BID Aspirin 325 Mg Tablet 1 Tab PO DAILY Cyclobenzaprine Hcl 10 Mg Tablet 1 Tab PO TID PRN NITROGLYCERIN SubLingual (Nitroglycerin) 0.4 Mg Tab.subl 0.4 Mg SL PRN Q5MIN PRN Vitals/I & O Vital Sign - Last 24 Hours 06/12/18 06/12/18 06/12/18 06/12/18 16:00 17:44 19:35 23:00 Temp 98.2 98.4 99.0 98.2 98.4 99.0 Pulse 75 68 73 78 Resp 17 18 17 B/P (MAP) 140/84 (102) 151/88 128/66 (86) 133/60 (84) Pulse Ox 99 94 O2 Delivery Room Air Room Air Room Air 06/13/18 06/13/18 06/13/18 06/13/18 03:20 06:25 07:50 09:16 Temp 99.2 99.1 99.2 99.1 Pulse 81 77 85 Resp 16 16 B/P (MAP) 121/65 (83) 114/77 (89) Pulse Ox 96 95 O2 Delivery Room Air Room Air Room Air 06/13/18 06/13/18 09:16 10:45 Pulse 85 65 Resp 16 B/P (MAP) 143/81 (101) Pulse Ox 95 O2 Delivery Room Air Intake and Output 06/12/18 06/12/18 06/13/18 15:00 23:00 07:00 Intake Total 240 ml 800 ml 340 ml Output Total 0 ml 1400 ml 1 ml Balance 240 ml -600 ml 339 ml GRADY GUDINO III DO Jun 13, 2018 11:51
[2018-06-13] MEDS ORDERED: BIVALIRUDIN 250 MG VIAL. IV ONE ×2 (11:54→12:15)
[2018-06-13] MEDS ORDERED: NITROGLYCERIN 200 MCG/2 ML SYRINGE FOR CATH/VASC LAB. IART ONE (12:15)
[2018-06-13] MEDS ORDERED: AMIODARONE 150 MG in IV DEXTROSE 5% 100ML 100 ML IV PRN (12:45)
[2018-06-13] MEDS ORDERED: NITROGLYCERIN SUBLINGUAL 0.4 MG BOTTLE OF 25. SL PRN (12:45)
[2018-06-13] MEDS ORDERED: 0.9 % SODIUM CHLORIDE 10 ML DISP.SYRIN. IV PRN (12:45)
[2018-06-13] MEDS ORDERED: fentaNYL PF VIAL 100 MCG/2 ML VIAL IV PRN (12:45)
[2018-06-13] MEDS ORDERED: ATROPINE 0.5 MG/5 ML DISP.SYRINGE. IV PRN (12:45)
[2018-06-13] MEDS ORDERED: ACETAMINOPHEN 325 MG TABLET. PO PRN (12:45)
[2018-06-13] MEDS ORDERED: LIDOCAINE 2% 100 MG/5 ML SYRINGE. IV PRN (12:45)
--- NOTE | 2018-06-13 13:10 | EKG ---
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
--- NOTE | 2018-06-13 17:22 | CARD ---
MR#: [id number] Date of Study: 06/13/2018 Ordering Physician: PANKAJ BARRERA, Referring Physician: GRADY GUDINO Tech: Gladys Norman, RT (R) APPROVED REPORT Procedures. Balloon PTCA of obtuse marginal 1 in-stent restenosis. IFR are measurements of the LAD. The patient is a pleasant 58-year-old male who was brought emergently to the catheterization lab 2 da ys prior with an acute ST elevated myocardial infarction. An occluded mid LAD was identified and open ed with a drug-eluting stent. In the same setting a significant restenosis of an obtuse marginal 1 pr evious placed stent to 80-85% was identified. The patient was returned today for stage intervention o f the obtuse marginal lesion and a recheck of an ostial LAD lesion. The procedure was discussed with the patient. Informed consent was obtained. After informed consent was obtained the patient was brought to the heart catheterization lab. The are a of the left femoral artery was prepared in the usual manner with Betadine, sterile draping and loca l anesthetic. An 18-gauge needle was used to enter the left femoral artery, a wire placed and a 6 Saulo nch sheath placed over the wire. With the assistance of a J-wire a 3.5 EXB guide was advanced to the ascending aorta and used to engage the left coronary system. Sequential injections confirmed a widely patent stent in the LAD and an 80-85% restenosis of the left circumflex previously placed stent. The patient also had an ostial LAD lesion estimated at 40-45%. However there also appeared to be some le ft main disease and to exclude any significant lesions a IFR wire was passed into the LAD. Measuremen ts were normal at 0.93. Heparin 1000 units was administered prior to passing the wire. At this time w ith a normal IFR of the LAD we proceeded to revascularize the obtuse marginal branch. Angiomax as per protocol was administered. A PT choice wire was used to cross the lesion. A 2.75 x 12 NC Euphora bal loon was used for 3 inflations at a maximum of 12 rosangela for 20 seconds. This decreased the 80-85% lesio n to less than 10%. All balloon inflations were within the stent. The wire and guiding system was rem naga. Injection the sheath showed normal placement. The sheath was removed and sealed with an Angio-S eal product. The patient was moved to the holding area in stable condition. Findings IFR measurement of the ostial LAD/ left main lesion was normal at 0.93. Previously placed stent in the LAD 2 days prior was widely patent. An 80-85% restenosed obtuse marginal stent was redilated as above with less than 10% residual lesion. <Conclusion> Nonsignificant IFR measurement of an LAD ostial lesion. Widely patent mid LAD stent. Successful balloon angioplasty of the obtuse marginal 1 restenotic stent decreased in the 80-85% lesi on to less than 10%. Signed by : Pankaj Barrera MD Electronically Approved : 06/13/2018 17:20:45
[2018-06-13] MEDS: ATORVASTATIN CALCIUM 20 MG TABLET PO SCH (21:15)
[2018-06-14] MEDS: IV NORMAL SALINE 1000ML BAG 1,000 ML IV SCH (00:03)
[2018-06-14 03:05] VITALS: BP 104/55
[2018-06-14 07:00] VITALS: BP 139/86
[2018-06-14] MEDS: LISINOPRIL 20 MG TABLET PO SCH (08:28)
[2018-06-14] MEDS: ASPIRIN ENTERIC COATED 81 MG TABLET.DR. PO SCH (08:28)
[2018-06-14] MEDS: CARVEDILOL 6.25 MG TABLET. PO SCH (08:29)
[2018-06-14] MEDS: TICAGRELOR 90 MG TABLET. PO SCH (08:29)
[2018-06-14] MEDS ORDERED: TICA90TA PO (10:52)
[2018-06-14] MEDS ORDERED: ATOR20TA58 PO (10:52)
[2018-06-14 11:00] VITALS: BP 134/77
[2018-06-14] MEDS ORDERED: CLOP75TA PO (11:38)
[2018-06-14] MEDS ORDERED: ATOR40TA59 PO (11:38)
--- NOTE | 2018-06-14 11:59 | PDOC ---
CARDIO Progress Notes Date and Time Date of Service 06/14/2018 Time of Evaluation 1146 Subjective Subjective: No Chest Pain, No shortness of breath, No Palpitations, No Dizziness, Other (cough) Vitals Vitals Vital Signs Date Time Temp Pulse Resp B/P (MAP) Pulse Ox O2 Delivery O2 Flow Rate FiO2 06/14/18 10:59 Room Air 06/14/18 08:29 74 139/86 06/14/18 07:00 98.9 18 97 98.9 06/13/18 12:33 2.0 Weight Weight [ ] Input and Output Intake and Output Intake and Output 06/14/18 07:00 Intake Total 400 ml Output Total 1345 ml Balance -945 ml Intake Oral 400 ml Output Urine Total 1345 ml # Voids 1 Laboratory Labs Laboratory Tests Test 06/13/18 21:21 Glucose (Fingerstick) 89 mg/dL (70-99) Physical Exam HEENT: Neck Supple W Full Motion Chest: Symmetric LUNGS: Clear to Auscultation Heart: S1S2, RRR, other (tele: SR) Abdomen: Soft N/T Extremities: No Edema Neurology: alert, oriented, follow commands Assessment Assessment 1. STEMI --s/p staged procedures to LAD and OM --continue DAPT X 12 months, then aspirin indefinitely; converting to clopidogrel as no pharmacy coverage --BB and high dose statin therapy 2. tobacco abuse --smoking cessation advised 3. hyperlipidemia --high dose statin 4. HTN --control with meds f/u with cardiology in 4 weeks MARCE FELIX APRN Jun 14, 2018 11:59
--- NOTE | 2018-06-14 13:39 | PDOC3 ---
Discharge Summary [facility] Date of Admission: Jun 11, 2018 Discharge Date: Jun 14, 2018 Admitting Diagnosis Chest pain, stemi WITH 1 STent at LAD and baloon angioplasty at obtuse marginal HTN urgency HLP Metabolic syndrome Tobaccoism with likely COPD h/o CAD: cardiac arrest in 2003 with stent placement and 2014 stent placement Noncompliance: has not utilized cardiac meds but has been using NTG due to financial constraints. Marijuana use no insurance Final Diagnosis CONSULTS card Brief Hospital Course Mr. Willoughby is a 58 old M, /h/o CAD with stents, smoker, non compliant with meds 2/2 insurance issues, came for chest pain. was found STEMI and got cath with 1 stent at LAD. then cont having chest pain with HTN, then got baloon angioplasty at obtuse marginal A. Pt was dced 2 weeks ago, at that time, MPI intermediate risk, card plan to do cath, however, pt seemed not willing to do it, and dced by colleague later afternoon. dc home with statin ,plavix, talked to nurse to get discount card from . pt supposed to fu with for his medicaid application. dc time 35min. General: Alert, Oriented X3, Cooperative, mild distress Heart: Regular rate (SR), Normal S1, Normal S2, Other (2/6 systolic murmur to LLS border) Lungs: Clear Abdomen: Normal bowel sounds, Soft, No tenderness Extremities: No cyanosis Skin: No rashes Disposition home CONDITION AT DISCHARGE: Improved Scheduled Aspirin (Aspirin), 1 TAB PO DAILY, (Reported) Atorvastatin Calcium (Atorvastatin Calcium), 40 MG PO HS Carvedilol (Coreg), 1 TAB PO BID, (Reported) Clopidogrel Bisulfate (Clopidogrel), 75 MG PO DAILY Lisinopril (Lisinopril), 1 TAB PO DAILY, (Reported) Scheduled PRN Cyclobenzaprine Hcl (Cyclobenzaprine Hcl), 1 TAB PO TID PRN for MUSCLE SPASMS, ( Reported) Nitroglycerin (NITROGLYCERIN SubLingual), 0.4 MG SL PRN Q5MIN PRN for CHEST PAIN , (Reported) SACHIN AVILA MD Jun 14, 2018 13:39
== END 2018-06-14 16:37 | disposition home or self-care (01) | DRG 246 ==
LOC: ER 20:14 → 1 WEST ICU 21:20 → 2 SOUTH 06-12 19:29
PROVIDERS: ADMIT Internal Medicine; ATTEND Internal Medicine
PROC: 027034Z Dilation of Coronary Artery, One Artery with Drug-eluting Intraluminal Device, Percutaneous Approach (ICD-10-PCS; principal; 2018-06-11)
PROC: 4A023N7 Measurement of Cardiac Sampling and Pressure, Left Heart, Percutaneous Approach (ICD-10-PCS; 2018-06-11)
PROC: B2111ZZ Fluoroscopy of Multiple Coronary Arteries using Low Osmolar Contrast (ICD-10-PCS; 2018-06-11)
PROC: 02703ZZ Dilation of Coronary Artery, One Artery, Percutaneous Approach (ICD-10-PCS; 2018-06-13)
PROC: 4A033BC Measurement of Arterial Pressure, Coronary, Percutaneous Approach (ICD-10-PCS; 2018-06-13)
DX: T82.855A Stenosis of coronary artery stent, initial encounter (principal); I21.3 ST elevation (STEMI) myocardial infarction of unspecified site; I50.43 Acute on chronic combined systolic (congestive) and diastolic (congestive) heart failure; E11.9 Type 2 diabetes mellitus without complications; E78.5 Hyperlipidemia, unspecified; E88.81 Metabolic syndrome and other insulin resistance; F17.210 Nicotine dependence, cigarettes, uncomplicated; I16.0 Hypertensive urgency; I11.0 Hypertensive heart disease with heart failure; I25.10 Atherosclerotic heart disease of native coronary artery without angina pectoris; J44.9 Chronic obstructive pulmonary disease, unspecified; M48.00 Spinal stenosis, site unspecified; F12.90 Cannabis use, unspecified, uncomplicated; M19.90 Unspecified osteoarthritis, unspecified site; Y83.9 Surgical procedure, unspecified as the cause of abnormal reaction of the patient, or of later complication, without mention of misadventure at the time of the procedure; Y92.89 Other specified places as the place of occurrence of the external cause; Z71.6 Tobacco abuse counseling; Z86.74 Personal history of sudden cardiac arrest; Z91.14 Patient's other noncompliance with medication regimen; Z82.49 Family history of ischemic heart disease and other diseases of the circulatory system; Z95.5 Presence of coronary angioplasty implant and graft; Z88.0 Allergy status to penicillin; Z79.82 Long term (current) use of aspirin; Z79.899 Other long term (current) drug therapy; Z79.84 Long term (current) use of oral hypoglycemic drugs; I25.2 Old myocardial infarction; Z91.19 Patient's noncompliance with other medical treatment and regimen
CPT/HCPCS: 36415; 71045; 80048; 80053; 80061; 82553; 82962; 83690; 83735; 83880; 84484; 85025; 85610; 87641; 92920; 92928; 93005; 93458; 93571; 96365; 96374; 96375; 99152; 99153; C1713; C1725; C1769; C1771; C1887; C1892; G0269; J0583; J1644; J2250; J3010; J3490; J7030; Q9967; 99285-25

== ENCOUNTER 2019-04-27 13:00 | Inpatient (IN) | payer MEDICARE ==
[2019-04-27] VITALS (10 sets, daily range): BP systolic 115–144; BP diastolic 62–84
[~2019-04-27] VITALS: Ht 180.3 cm; Wt 88.0 kg
[~2019-04-27 13:00] MED LIST changes: +ATOR20TA58 PO; +ATOR40TA59 PO; +CARV6.25 PO; +CLOP75TA PO; +LISI-334 PO; +TICA90TA PO
[2019-04-27] MEDS ORDERED: VERAPAMIL 5 MG/2 ML VIAL. ONE (14:18)
[2019-04-27] MEDS ORDERED: HEPARIN for IV BOLUS 10,000 UNIT/10 ML VIAL. ONE (14:18)
[2019-04-27] MEDS ORDERED: MIDAZOLAM HCL/PF 5 MG/5 ML VIAL. ONE (14:18)
[2019-04-27] MEDS ORDERED: NITROGLYCERIN 200 MCG/2 ML SYRINGE FOR CATH/VASC LAB. ONE (14:18)
[2019-04-27] MEDS ORDERED: fentaNYL PF VIAL 100 MCG/2 ML VIAL ONE (14:18)
[2019-04-27] MEDS ORDERED: LIDOCAINE 1% PF 2 ML VIAL. ONE (14:19)
[2019-04-27] MEDS ORDERED: LOSA-73 PO (14:44)
[2019-04-27] MEDS ORDERED: TICA90TA PO (14:44)
[2019-04-27] MEDS ORDERED: ASPI-612 PO (14:44)
[2019-04-27] MEDS ORDERED: CARV25TA2 PO (14:44)
[2019-04-27] MEDS ORDERED: ACETAMINOPHEN 325 MG TABLET. PO PRN (14:45)
[2019-04-27] MEDS ORDERED: NITROGLYCERIN SUBLINGUAL 0.4 MG BOTTLE OF 25. SL PRN (14:45)
[2019-04-27] MEDS ORDERED: MIDAZOLAM HCL/PF 5 MG/5 ML VIAL. IV ONE (15:00)
[2019-04-27] MEDS ORDERED: IODIXANOL 320 MG/ML 100 ML VIAL. IART ONE (15:00)
[2019-04-27] MEDS ORDERED: fentaNYL PF VIAL 100 MCG/2 ML VIAL IV ONE (15:00)
[2019-04-27] MEDS ORDERED: LIDOCAINE 1% PF 2 ML VIAL. INJ ONE (15:00)
[2019-04-27] MEDS ORDERED: NITROGLYCERIN 200 MCG/2 ML SYRINGE FOR CATH/VASC LAB. IART ONE (15:00)
[2019-04-27] MEDS ORDERED: HEPARIN for IV BOLUS 10,000 UNIT/10 ML VIAL. IART ONE (15:00)
[2019-04-27] MEDS ORDERED: VERAPAMIL 5 MG/2 ML VIAL. IART ONE (15:00)
--- NOTE | 2019-04-27 15:59 | CARD ---
MR#: [id number] Date of Study: 04/27/2019 Ordering Physician: YASMEEN BLOUNT, Referring Physician: KYARA MORFIN Tech: Marisabel Barraza APPROVED REPORT Technologist: Marisabel Barraza Nurse: Ashly Washington R.N. Procedure(s) performed: fl time: 1.3 min dose: 39 gy/cm2 contrast: 37 ml sedation: 47 MIN LHC, Coronary angiography HISTORY The patient is a 59 year-old male with a history of : coronary artery disease, tobacco history() , hy pertension, dyslipidemia. INDICATION The indication(s) include : non-STEMI . CSHA Clinical Frailty Scale CSHA Clinical Frailty Scale: Vulnerable Heart Failure Heart Failure: No PROCEDURE NARRATIVE INFORMED CONSENT: After explaining the risks and benefits of the procedure and alternatives, informed consent was obtained. The patient was brought electively to the cardiac catheterization lab. A timeout was performed confi rming the patient's name, date of , procedure, and site of procedure. All necessary personnel w ere wearing the appropriate protective equipment and radiation monitor devices. (See nursing notes for medications administered). ACCESS: The right wrist was sterilely prepped and draped in the usual fashion. The right wrist was infiltrat ed with 1 mL of 2% lidocaine for subcutaneous anesthesia. A 6 [place]ian Terumo glide sheath was inserte d into the right radial artery without difficulty. CORONARY ANGIOGRAPHY: Right and left coronary angiography was performed using a 6Fr TIG 4.0 catheter. Left ventricular en d diastolic pressure was obtained with a pigtail catheter and pullback was performed after left ventr iculography. All catheter exchanges and advancements were performed over a guidewire. CLOSURE: At case completion the right radial sheath was removed and a Terumo radial band was applied with 13 m l of air. COMPLICATIONS: The patient tolerated the procedure well and there were no immediate complications. FINDINGS: HEMODYNAMICS: LVEDP 22 mm Hg No gradient on LV to aortic pullback. AO: 128/78 LEFT VENTRICULOGRAM: EF 55% Anterobasal: Normal. Anterolateral: Normal Apical: Normal Diaphragmatic: Normal Posterobasal: Normal CORONARY ANGIOGRAPHY: LM is a large caliber vessel with normal angiographic appearance. LAD is a large caliber vessel with patent mid and distal stents with mild luminal irregularities. D1 is a moderate caliber vessel with 50% diffuse ISR. LCx is a moderate caliber non-dominant vessel with normal angiographic appearance. OM1 is a moderate caliber vessel with a patent proxmial stent. LPL is a small caliber vessel with an ostial/proximal 95% stenosis extending from the LCx. RCA is a large caliber dominant vessel a proximal 100% occlusion. The mid to distal RCA fills via brunilda ust left to right and right to right collaterals. RPDA is a moderate caliber vessels with normal angiographic appearance. Conclusion 1. Severe three vessel coronary disease. 2. Normal LVEDP Recommendations 1. Given the lack of significant chest pain, normal EKG, PCI of the small caliber distal LCx was defe rred in favor of medical therapy. 2. If after maximally tolerated anti-anginal therapy, smoking cessation and medication compliance the patient still has pain, could consider MPI and determine need for MANAGEMENT INFORMATION SYSTEMS DIRECTOR PCI of the RCA Signed by : Yasmeen Blount, Electronically Approved : 04/27/2019 15:59:26
[2019-04-27] MEDS ORDERED: CARVEDILOL 12.5 MG TABLET. PO SCH (17:00)
--- NOTE | 2019-04-27 20:30 | NUR ---
PT IS LEAVING, HE SAYS.AFTER GETTING HIS TR BAND REMOVED. I EXPALINED THER ARE A COUPLE OF THINGS THAT NEED TO BE DONE BEFORE HE CAN LEAVE, PAPERWORK FOR AMA SIGNED. BILATER IV'S REMOVE. HELD PRESSURE ON LEFT FA. THEN PLACED PRESSURE DRESSING ON IT. PT INSISTS IT WILL BE OK BECAUSE HE HAS AN EMERGY KIT. WENT OVER HOLDING PRESSURE AND CALLING 911. RECEIVED CALL BACK FROM DR BLACKMON EXPLAINED THE CIRCUMSTANCE. HE DID NOT AGREE LETTING THE PT LEAVE, THERFORE AMA PAPERS WERE GIVEN TO THE PT TO SIGN. IT WAS DIFFICULT FOR HIM TO HOLD STILL. HE KEPT PACING BACK AND FORTH LCRN
--- NOTE | 2019-04-27 20:45 | NUR ---
PT LEFT AMA. WALKED OUT. EXPLAINED IV SITES AND RADIAL SITES. LCRN
[2019-04-27] MEDS ORDERED: ATORVASTATIN CALCIUM 40 MG TABLET. PO SCH (21:00)
[2019-04-27] MEDS ORDERED: TICAGRELOR 90 MG TABLET. PO SCH (21:00)
[2019-04-28] MEDS ORDERED: ASPIRIN ENTERIC COATED 81 MG TABLET.DR. PO SCH (09:00)
[2019-04-28] MEDS ORDERED: LOSARTAN POTASSIUM 25 MG TABLET. PO SCH (09:00)
--- NOTE | 2019-05-18 13:52 | SSS ---
ADMIT DATE: HISTORY OF PRESENT ILLNESS: The patient is a 59-year-old male patient who was transferred from [facility], where he came complaining of chest pain. He has had 3 sets of cardiac enzymes, showed troponin to be slightly elevated and he was transferred to this hospital with the concern that he might have unstable angina. He was taken to the laboratory chemical assistant and underwent a cardiac catheterization by Dr. Blount, which showed that he has severe 3-vessel coronary artery disease, has normal left ventricular end-diastolic pressure. The machine set up operator paper goods recommended that given the lack of significant chest pain, normal EKG and PCI of the small caliber distal left circumflex was deferred in favor of medical therapy and that if after maximally tolerated antianginal therapy, smoking cessation and medication compliance, the patient still has pain, could consider MPI and determine need for PCI to the right coronary artery. Apparently, the patient left against medical advice shortly thereafter. KYARA MORFIN MD DR: AMINA/tan JOB#: [id number] / [id number]
== END 2019-04-27 20:45 | disposition left against medical advice (07) | DRG 287 ==
LOC: 2 SOUTH 13:53
PROVIDERS: ADMIT Internal Medicine; ATTEND Internal Medicine
PROC: 4A023N7 Measurement of Cardiac Sampling and Pressure, Left Heart, Percutaneous Approach (ICD-10-PCS; principal; 2019-04-27)
PROC: B2111ZZ Fluoroscopy of Multiple Coronary Arteries using Low Osmolar Contrast (ICD-10-PCS; 2019-04-27)
PROC: B2151ZZ Fluoroscopy of Left Heart using Low Osmolar Contrast (ICD-10-PCS; 2019-04-27)
DX: T82.855A Stenosis of coronary artery stent, initial encounter (principal); I25.10 Atherosclerotic heart disease of native coronary artery without angina pectoris; I10 Essential (primary) hypertension; E78.5 Hyperlipidemia, unspecified; I25.82 Chronic total occlusion of coronary artery; Y83.8 Other surgical procedures as the cause of abnormal reaction of the patient, or of later complication, without mention of misadventure at the time of the procedure; Y92.89 Other specified places as the place of occurrence of the external cause
CPT/HCPCS: 93458; 99152; 99153; 99406; C1769; C1892; J1644; J2250; J3010; J3490; Q9967; G0378

== ENCOUNTER 2019-12-03 14:32 | Emergency (ER) | payer MEDICARE ==
[~2019-12-03] VITALS: Ht 182.9 cm; Wt 97.8 kg
[~2019-12-03 14:32] MED LIST changes: +ASPI-612 PO; +CARV25TA2 PO; +LOSA-73 PO
[2019-12-03 15:00] VITALS: BP 153/73
--- NOTE | 2019-12-03 15:51 | PHYS DOC ---
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 Patient reports several family members have similar symptoms. Review of Systems Review of Systems Constitutional: Denies fever or chills [] Eyes: Denies change in visual acuity, redness, or eye pain [] HENT: Reports nasal congestion denies sore throat [] Respiratory: Reports cough denies shortness of breath [] Cardiovascular: No additional information not addressed in HPI [] GI: Denies abdominal pain, nausea, vomiting, bloody stools or diarrhea [] : Denies dysuria or hematuria [] Musculoskeletal: Denies back pain or joint pain [] Integument: Denies rash or skin lesions [] Neurologic: Denies headache, focal weakness or sensory changes [] All other systems were reviewed and found to be within normal limits, except as documented in this note. Allergies Allergies Allergies Coded Allergies Type Severity Reaction Last Updated Verified Penicillins Allergy Intermediate hives 06/11/18 Yes Physical Exam Physical Exam Constitutional: Well developed, well nourished, no acute distress, non-toxic appearance. [] HENT: Normocephalic, atraumatic, bilateral external ears normal, oropharynx moist, no oral exudates, nose normal. [] Eyes: PERRLA, EOMI, conjunctiva normal, no discharge. [] Neck: Normal range of motion, no tenderness, supple, no stridor. [] Cardiovascular:Heart rate regular rhythm, no murmur [] Lungs & Thorax: Bilateral breath sounds clear to auscultation [] Abdomen: Bowel sounds normal, soft, no tenderness, no masses, no pulsatile masses. [] Skin: Warm, dry, no erythema, no rash. [] Back: No tenderness, no CVA tenderness. [] Extremities: No tenderness, no cyanosis, no clubbing, ROM intact, no edema. [] Neurologic: Alert and oriented X 3, normal motor function, normal sensory function, no focal deficits noted. [] Psychologic: Affect normal, judgement normal, mood normal. [] Current Patient Data Vital Signs Vital Signs Date Time Temp Pulse Resp B/P (MAP) Pulse Ox O2 Delivery O2 Flow Rate FiO2 12/03/19 15:00 98.5 98 24 153/73 (99) 95 Room Air 98.5 Lab Values Laboratory Tests Test 12/03/19 15:34 Influenza Type A Antigen Negative (NEGATIVE) Influenza Type B Antigen Negative (NEGATIVE) EKG EKG [] Radiology/Procedures Radiology/Procedures []PROCEDURE: CHEST PA & LATERAL Exam performed: 2 views of the chest. Indication: Cough Date of Service: 12/03/2019 3:40 PM . Comparison : One view chest from 06/11/2018 Findings: PA and lateral radiographs of the chest reveal a normal cardiomediastinal contour. The lungs are hyperinflated, . There is a linear opacity in the right upper lobe perhaps atelectasis or developing infiltrates. No pleural fluid is seen. Degenerative changes involving the thoracic spine. Impression: Linear opacity in the right upper lobe perhaps atelectasis or developing infiltrates. Electronically signed by: Arlyn Ayers MD (12/03/2019 4:43 PM) [id number] DICTATED and SIGNED BY: ARLYN AYERS MD DATE: 12/03/19 1643 Course & Med Decision Making Course & Med Decision Making Pertinent Labs and Imaging studies reviewed. (See chart for details) This is a 59-year-old male patient presenting to the ED today with cough nasal congestion, symptoms began 3 days ago. Patient is a current smoker, advised to consider smoking cessation. Negative influenza A/B. Chest x-ray interpreted by radiologist was noted for possible atelectasis or possibly developing right upper lobe pneumonia. Patient was put on doxycycline. Follow-up with primary care doctor in the course of this week. Provided return precautions and discharged in stable condition. Dragon Disclaimer Dragon Disclaimer This electronic medical record was generated, in whole or in part, using a voice recognition dictation system. Departure Departure Impression: Primary Impression: Smoking addiction Additional Impression: Right upper lobe pneumonia Disposition: HOME, SELF-CARE Condition: STABLE Referrals: KYARA MORFIN MD (PCP) Follow-up in 1 to 2 weeks Patient Instructions: Pneumonia, Adult Additional Instructions: You were evaluated in the emergency room and your chest x-ray shows you could be developing pneumonia. Consider smoking cessation. Take the prescribed antibiotics until completed. Take Tylenol/ Motrin for pain or fever. Follow-up with your doctor in the course of this week, come back to the ED at any point symptoms worsen. Scripts Doxycycline Hyclate (DOXYCYCLINE HYCLATE) 100 Mg Tablet 1 TAB PO BID, #14 TAB Prov: GEOFF ORELLANA APRN 12/03/19 Benzonatate (TESSALON PERLE) 100 Mg Capsule 1 CAP PO TID, #30 CAP Prov: GEOFF ORELLANA APRN 12/03/19 Problem Qualifiers Additional Impression: Right upper lobe pneumonia Pneumonia type: due to unspecified organism Qualified Codes: J18.9 - Pneumonia, unspecified organism GEOFF ORELLANA APRN Dec 03, 2019 15:51
[2019-12-03 16:24] LABS: INFLUENZA A PATIENT NEGATIVE (NEGATIVE); INFLUENZA B PATIENT NEGATIVE (NEGATIVE)
--- NOTE | 2019-12-03 16:45 | RAD ---
Exam performed: 2 views of the chest. Indication: Cough Date of Service: 12/03/2019 3:40 PM . Comparison : One view chest from 06/11/2018 Findings: PA and lateral radiographs of the chest reveal a normal cardiomediastinal contour. The lungs are hyperinflated, . There is a linear opacity in the right upper lobe perhaps atelectasis or developing infiltrates. No pleural fluid is seen. Degenerative changes involving the thoracic spine. Impression: Linear opacity in the right upper lobe perhaps atelectasis or developing infiltrates. Electronically signed by: Arlyn Ayers MD (12/03/2019 4:43 PM) [id number]
[2019-12-03] MEDS ORDERED: BENZ100C PO (17:08)
[2019-12-03] MEDS ORDERED: DOXY100T PO (17:08)
== END 2019-12-03 17:35 | disposition home or self-care (01) ==
LOC: ER 14:32
DX: J18.9 Pneumonia, unspecified organism (principal); E11.9 Type 2 diabetes mellitus without complications; I25.2 Old myocardial infarction; I25.10 Atherosclerotic heart disease of native coronary artery without angina pectoris; F17.200 Nicotine dependence, unspecified, uncomplicated; Z95.5 Presence of coronary angioplasty implant and graft; Z88.0 Allergy status to penicillin
CPT/HCPCS: 71046; 87804; 99284